=== PATIENT | female | born 1980 | race Caucasian/White ===

== ENCOUNTER 2022-11-25 08:54 | Emergency (ER) | payer OTHER, SELFPAY ==
[2022-11-25 09:07] VITALS: BP 113/80; PULSE 69; RESP 18; TEMP 36.8; O2SAT 97; BMI 33.2
[2022-11-25 09:32] VITALS: BP 126/75; PULSE 71; RESP 15; TEMP 36.9; O2SAT 97
[2022-11-25 09:36] LABS: Basophils # 0.1 10^3/uL (0.0-0.1); Basophils % 0.5 %; Eosinophils # 0.4 10^3/uL (0.0-0.8); Eosinophils % 3.2 %; Hematocrit 43.5 % (37.0-47.0); Hemoglobin 14.3 g/dL (11.5-15.3); Lymphocytes # 2.6 10^3/uL (0.8-4.8); Lymphocytes % 21.4 %; Mean Corpuscular HGB Conc 32.9 g/dL (30.0-36.0); Mean Corpuscular Hemoglobin 29.8 pg (28.0-34.0); Mean Corpuscular Volume 90.6 fl (81-99); Mean Platelet Volume 12.7 fL (7.4-10.4); Monocytes # 0.6 10^3/uL (0.2-0.9); Monocytes % 5.3 %; Neutrophils # 8.35 10^3/uL (1.8-7.7); Neutrophils % 69.2 %; Nucleated Red Blood Cells % 0 %; Platelet Count 220 10^3/cmm (130-400); Red Cell Distribution Width 12.7 % (12.1-15.1); White Blood Count 12.1 10^3/uL (4.0-10.0)
[2022-11-25 09:49] LABS: Add Urine Microscopic? NO; Charge for UA Resulting for Rev
--- NOTE | 2022-11-25 09:49 | US_ITS ---
WS: [id number] Exam: US gall bladder [id number] Date/Time of Exam: 11/25/2022 9:49 AM Reason For Exam: abd pain Thick-walled contracted gallbladder contains multiple stones. No sign of pericholecystic fluid or gal lbladder wall edema. The liver is grossly normal. Common bile duct is not dilated and measures 3.7 mm at greatest diameter. No intrahepatic ductal dilatation. Normal-appearing right kidney. No free flui d in the right abdomen. US/US gall bladder [id number] IMPRESSION: 1. Contracted thick-walled gallbladder containing multiple stones. No definite sign of acute cholecystitis.
--- NOTE | 2022-11-25 09:52 | W.ED.ABDPA2 ---
HPI - Abdominal Pain General: Chief Complaint: Abdominal Pain Stated Complaint: sent by UC/stomach cramps Time Seen by Provider: 11/25/22 08:56 Source: patient Mode of arrival: ambulatory History of Present Illness: 41-year-old female who presents emergency room complaining of epigastric right upper quadrant abdominal pain has been going on for approximately a week eating seems to make it worse she has really noticed anything that makes it better she denies any hemoptysis hematochezia melena hematemesis or coffee-ground emesis. No dysuria urgency or frequency no real flank pain. No hematuria. She is not had any previous abdominal surgeries. She has not previously had pain such as this in the past. Subjectively she is reporting a mild fever overnight. She states she has only been able to drink water she has vomited quite a bit of water and bile-like material. MD elicited complaint: abdominal pain Onset (ago): week(s) Pain Consistency: intermittent Location: Epigastric Severity: moderate Quality: cramping Radiation: RUQ Exacerbating factors: eating Relieving factors: nothing Associated Symptoms: Reports GI cramping, nausea, poor appetite and vomiting; Denies anorexia, belching, bloating, change in bowel habits, change in stool character, chills, coffee ground emesis, constipation, diarrhea, dyspepsia, dysuria, excessive flatus, fever(s), heartburn, hematochezia, hematuria, hematemesis, fecal incontinence, loose stools, melena and syncope Review of Systems Const: Denies: fever(s), chills, fatigue or malaise ENMT: Denies: throat pain, ear or mastoid pain, nasal discharge or nasal congestion Card: Denies: chest pain, palpitations, irregular heart rhythm or syncope Resp: Denies: dyspnea, productive cough or non-productive cough GI: Reports: abdominal pain, nausea, vomiting and GI cramping; Denies: hematemesis, coffee ground emesis, heartburn, diarrhea, constipation, bloating, belching, excessive flatus, fecal incontinence, change in bowel habits, change in stool character, hematochezia or melena : Denies: flank pain, dysuria, urinary frequency or hematuria Skin/Breast: Denies: rash or pruritus PFSH ED PFSH: Medical History Mixed anxiety depressive disorder Physical Exam Const: COMMON NORMALS: no acute distress GENERAL APPEARANCE: cooperative and comfortable ORIENTATION/CONSCIOUSNESS: Yes awake, Yes oriented to person, Yes oriented to place and Yes oriented to time HENMT: COMMON NORMALS: normocephalic, atraumatic and hearing grossly normal bilaterally HEAD & SCALP: normocephalic and atraumatic Resp: COMMON NORMALS: normal respiratory effort, No retractions, No use of accessory muscles and clear to auscultation bilaterally AUSCULTATION: clear to auscultation bilaterally Cardio: COMMON NORMALS: regular rate, regular rhythm and No murmurs present (Cardio) RATE: regular rate RHYTHM: regular rhythm GI: COMMON NORMALS: No hepatosplenomegaly present AUSCULTATION: Yes normoactive bowel sounds PALPATION: Yes Tenderness to palpation present (GI) (Epigastric. Negative Pires sign) Details: RUQ, No Guarding due to palpation present (GI) and Yes No hepatosplenomegaly present Extremity: COMMON NORMALS: normal to inspection, capillary refill normal, no clubbing, cyanosis or edema, no calf tenderness and no pedal edema Neuro: SENSORIUM/ORIENTATION: Yes oriented to person, Yes oriented to place and Yes oriented to time Skin: COMMON NORMALS: no rashes or lesions noted GENERAL SKIN EXAM: no rashes or lesions noted Course Vital Signs: Vital signs: Vital Signs Temperature 98.5 F 11/25/22 09:32 Pulse Rate 76 11/25/22 10:21 Respiratory Rate 15 11/25/22 09:32 Blood Pressure 100/79 11/25/22 10:21 Pulse Oximetry 95 11/25/22 10:21 Oxygen Delivery Me thod Room Air 11/25/22 10:21 MDM - Abdominal Pain Medical Decision Making Biliary colic with cholelithiasis no evidence of choledocholithiasis. Mild leukocytosis but normal liver functions and T. bili discussed Dr. Wiley on-call will discharge patient home dietary restrictions started on Augmentin follow-up with Dr. Wiley in the office to plan for definitive care return if is worsening problems Medical Records I reviewed the patient's medical records. Lab Data I reviewed the patient's lab results. 11/25/22 09:25 11/25/22 09:25 Labs/Radiology: Radiology Impressions Gallbladder Ultrasound 11/25/22 09:49 IMPRESSION: 1. Contracted thick-walled gallbladder containing multiple stones. No definite sign of acute cholecystitis. Laboratory Results WBC 12.1 10^3/uL (4.0-10.0) H 11/25/22 09:25 RBC 4.80 10^6/uL (4.1-5.3) 11/25/22 09:25 Hgb 14.3 g/dL (11.5-15.3) 11/25/22 09:25 Hct 43.5 % (37.0-47.0) 11/25/22 09:25 MCV 90.6 fl (81-99) 11/25/22 09:25 MCH 29.8 pg (28.0-34.0) 11/25/22 09:25 MCHC 32.9 g/dL (30.0-36.0) 11/25/22 09:25 RDW 12.7 % (12.1-15.1) 11/25/22 09:25 Plt Count 220 10^3/cmm (130-400) 11/25/22 09:25 MPV 12.7 fL (7.4-10.4) H 11/25/22 09:25 Neut % (Auto) 69.2 % 11/25/22 09:25 Lymph % (Auto) 21.4 % 11/25/22 09:25 [place] % (Auto) 5.3 % 11/25/22 09:25 Eos % (Auto) 3.2 % 11/25/22 09:25 Baso % (Auto) 0.5 % 11/25/22 09:25 Neut # (Auto) 8.35 10^3/uL (1.8-7.7) H 11/25/22 09:25 Lymph # (Auto) 2.6 10^3/uL (0.8-4.8) 11/25/22 09:25 Johnston # (Auto) 0.6 10^3/uL (0.2-0.9) 11/25/22 09:25 Eos # (Auto) 0.4 10^3/uL (0.0-0.8) 11/25/22 09:25 Baso # (Auto) 0.1 10^3/uL (0.0-0.1) 11/25/22 09:25 Nucleated RBC % (auto) 0 % 11/25/22 09:25 Nucleated RBCs # 0.0 /100WBC 11/25/22 09:25 Sodium 138 mmol/L (136-145) 11/25/22 09:25 Potassium 4.0 mmol/L (3.5-5.1) 11/25/22 09:25 Chloride 102 mmol/L (98-107) 11/25/22 09:25 Carbon Dioxide 26 mmol/L (22-29) 11/25/22 09:25 Anion Gap 14.0 (5-19) 11/25/22 09:25 BUN 12 mg/dL (6-20) 11/25/22 09:25 Creatinine 0.8 mg/dL (0.5-0.9) 11/25/22 09:25 GFR Calculation 78.3 mL/min (90-130) L 11/25/22 09:25 Glucose 89 mg/dL (65-115) 11/25/22 09:25 Calculated Osmolality 285 mOsm/kg (285-295) 11/25/22 09:25 Calcium 9.3 mg/dL (8.5-10.5) 11/25/22 09:25 Total Bilirubin 0.3 mg/dL (0.15-1.2) 11/25/22 09:25 AST 14 U/L (0-32) 11/25/22 09:25 ALT 14 U/L (0-33) 11/25/22 09:25 Alkaline Phosphatase 89 U/L (35-105) 11/25/22 09:25 Total Protein 7.0 g/dL (6.6-8.7) 11/25/22 09:25 Albumin 4.2 g/dL (3.5-5.2) 11/25/22 09:25 Globulin 2.8 g/dL (1.3-4.6) 11/25/22 09:25 Urine Color Yellow (Yellow) 11/25/22 09:37 Urine Appearance Clear (CLEAR) 11/25/22 09:37 Urine pH 6 (5-7) 11/25/22 09:37 Ur Specific [place] 1.015 (1.005-1.030) 11/25/22 09:37 Urine Protein Neg (Negative) 11/25/22 09:37 Urine Glucose (UA) Norm (Normal) 11/25/22 09:37 Urine Ketones Negative (Negative) 11/25/22 09:37 Urine Blood Neg (Negative) 11/25/22 09:37 Urine Nitrate Negative (Negative) 11/25/22 09:37 Urine Bilirubin Neg (Negative) 11/25/22 09:37 Urine Urobilinogen Norm mg/dL (Negative) 11/25/22 09:37 Ur Leukocyte Esterase Negative (Negative) 11/25/22 09:37 Discharge Plan Discharge Patient Disposition: Home Clinical Impression: Cholelithiasis, Biliary colic Condition: Stable Prescriptions: New amoxicillin-pot clavulanate 875-125 mg tablet 1 tab PO BID Qty: 20 0RF hydrocodone-acetaminophen 5-325 mg tablet 1 tab PO Q6H PRN (Reason: pain) Qty: 15 0RF promethazine 25 mg tablet 25 mg PO Q6H PRN (Reason: nausea and vomiting) Qty: 20 0RF No Action bupropion HCl [Wellbutrin SR] 150 mg tablet sustained-release 12 hr 150 mg PO BID Qty: 60 0RF Rx Instructions: Need apt for refills. Tums 200 mg calcium (500 mg) Tablet,Chewable 200 mg PO TID PRN (Reason: Heartburn) ibuprofen 200 mg Tablet 600 mg PO Q6H PRN (Reason: Pain) albuterol sulfate 90 mcg/actuation Hfa Aerosol Inhaler 2 puff INHALATION QID PRN (Reason: Shortness Of Breath) Discharge Orders: Discharge ED (Routine); Ordered 11/25/22 Ordered By: Ilya Braxton Patient Instructions: Biliary Colic (ED), Gallstones (ED), Abdominal Pain (ED), Opioid Safety, Pain Management Activity Restrictions/Additional Instructions: You are seen today for epigastric abdominal pain. You did not have acute cholecystitis but you do have gallbladder stones with contraction there is no sign of blockage of the bile ducts. We will start you on oral antibiotics avoid fatty foods fried foods red meats citrus foods. Case management will make arrangements for you to follow-up with Dr. Wiley general surgeon. Coding Level of Care Code ED [employer]ling [employer] Engraver for Veronica James
[2022-11-25 09:56] LABS: Alanine Aminotransferase 14 U/L (0-33); Albumin Level 4.2 g/dL (3.5-5.2); Alkaline Phosphatase 89 U/L (35-105); Aspartate Amino Transferase 14 U/L (0-32); Blood Urea Nitrogen 12 mg/dL (6-20); Calcium 9.3 mg/dL (8.5-10.5); Carbon Dioxide 26 mmol/L (22-29); Chloride 102 mmol/L (98-107); Globulin 2.8 g/dL (1.3-4.6); Glomerular Filtration Rate 78.3 mL/min (90-130); Glucose 89 mg/dL (65-115); Osmolality Calculated 285 mOsm/kg (285-295); Sodium 138 mmol/L (136-145); Total Bilirubin 0.3 mg/dL (0.15-1.2)
[2022-11-25 09:58] LABS: Bilirubin Urine Neg (Negative); Blood Urine Neg (Negative); Glucose Urine UA Norm (Normal); Ketones Urine Negative (Negative); Leukocyte Esterase Urine Negative (Negative); Nitrate Urine Negative (Negative); Protein Urine Neg (Negative); Specific Gravity, Urine 1.015 (1.005-1.030); Urine Appearance Clear (CLEAR); Urine Color Yellow (Yellow); Urobilinogen Urine Norm (Negative); pH Urine 6 (5-7)
[2022-11-25] MEDS: sodium chloride 0.9% 1,000 ML 999 ML IV (10:19)
[2022-11-25 10:21] VITALS: BP 100/79; PULSE 76; O2SAT 95
--- NOTE | 2022-11-25 11:36 | DCPLANNER ---
Addendum entered by Cheyenne Umana 12/26/22 09:52: Patient attended appointment scheduled with general surgery Addendum entered by Cheyenne Umana 12/03/22 14:11: Patient has a follow up appointment scheduled for Tuesday, December 13, 2022 at 8:[address] jung at general surgery. Original Note: manager business planning had message to schedule a follow up appointment for patient with general surgery. manager business planning sent patients information to the front office staff at general surgery. Patients information will be printed and reviewed. Clinic will call patient with appointment information.
== END 2022-11-25 11:38 | disposition home or self-care (01) ==
PROVIDERS: Emergency Provider Family Medicine
DX: K80.20 Calculus of gallbladder without cholecystitis without obstruction (principal)
CPT/HCPCS: 76705; 80053; 81003; 85025; 96360; 99284; J7030

== ENCOUNTER 2023-01-22 05:46 | Day surgery (SDC) | payer OTHER, SELFPAY ==
[2023-01-21 10:55] VITALS: BMI 33.2
[2023-01-22] VITALS (17 sets, daily range): BP systolic 102–134; BP diastolic 55–91; PULSE 61–75; RESP 16–20; TEMP 36.3–36.8; O2SAT 91–98
--- NOTE | 2023-01-22 06:29 | W.PM.OPSFHP ---
Same Day Surgery H&P Indication for Procedure/HPI DATE OF PROCEDURE: January 22, 2023 CHIEF COMPLAINT/INDICATIONFOR SURGICAL PROCEDURE: Chronic cholecystitis PREOP DIAGNOSIS: Chronic cholecystitis PLANNED PROCEDURE: Operation Date: 01/22/23 07:00 Proposed Procedures p Laparoscopic Cholecystectomy 20732,K82.9(Not Applicable) - Minh Yoder MD Medications/Allergies* Home Medications Medication Instructions Recorded Confirmed Type albuterol sulfate 90 mcg/actuation 2 puff inhalation QID PRN 11/25/22 01/22/23 History aerosol inhaler Shortness Of Breath calcium carbonate 200 mg calcium 200 mg PO TID PRN Heartburn 11/25/22 01/22/23 History (500 mg) chewable tablet (Tums) ibuprofen 200 mg tablet 600 mg PO Q6H PRN Pain 11/25/22 01/22/23 History Allergies/Adverse Reactions Allergy/AdvReac Type Severity Reaction Status Date / Time No Known Allergies Allergy Unverified 12/13/22 08:12 Pertinent History/Comorbid Conditions* Medical History (Updated 12/03/22 @ 00:01 by ASHWIN Moura) Mixed anxiety depressive disorder Family History (Updated 12/13/22 @ 08:13 by KENNEY Elizabeth) Diabetes Unknown Heart disease Unknown Social History Smoking and tobacco status: current every day smoker cigarettes Alcohol intake: current Alcohol intake frequency: holidays/special occasions only Pertinent Exam Findings alert, oriented x 3, clear to auscultation bilaterally and regular rate & rhythm Recommendations Surgery/Procedure today Coding Level of Care Code Acute Code for Chg Fwd Diagnoses
[2023-01-22] MEDS: sodium chloride 0.9% 1,000 ML 30 ML IV (06:33)
[2023-01-22] MEDS: ceFAZolin 2,000 MG in sodium chloride 0.9% (plus) 50 ML 100 MG IV (07:16)
[2023-01-22] MEDS: lidocaine-epi 1% 20 mL INJ INJECTION (07:43)
[2023-01-22] MEDS: BUPivacaine 0.25% INJ 10 mL INJECTION (07:44)
--- NOTE | 2023-01-22 09:18 | PM.OP ---
Operative Report Date of procedure: January 22, 2023 Pre-op diagnosis: Chronic cholecystitis Post-op diagnosis: Same Procedure done: Laparoscopic cholecystectomy Specimens removed/disposition: Gallbladder Surgeon: Minh Yoder MD Order Expediter: ANGELA OR Staff Estimated blood loss: 10 Findings: Contracted gallbladder, feel with the stones, fatty infiltration of Calot's triangle with severe chronic inflammatory changes, preventing safe dissection of the cystic duct. Cholecystectomy was completed by transecting the gallbladder at the junction between the infundibulum and the cystic duct. Brief History: 42-year-old female who presents for evaluation of biliary colic and abdominal pain, ultrasound of the gallbladder show evidence of a contracted gallbladder after a prolonged discussion of the risk and benefits of the procedure the patient was scheduled for a laparoscopic cholecystectomy as documented in my clinic visit. Procedure: Patient was brought into the OR placed in the supine position. General anesthesia was given. The abdomen was prepped and draped in the usual sterile fashion. Timeout was conducted. The abdomen was accessed via an infraumbilical incision using an open technique, Merritt trocar was inserted and fixed to the fascia with 0 Vicryl. Initial laparoscopy showed no evidence of injury abdominal entry. Additional trocars were placed in the epigastrium right upper quadrant and right flank regions. The gallbladder was elevated from the fundus, the infundibulum was retracted to provide exposure of hepatocystic triangle. Intense fatty infiltration was noted at the level of the hepatocystic triangle the peritoneum anterior to this area was opened with electrocautery this opening was carried bilaterally to the edges of the liver and then superior along the edges of the gallbladder to provide better exposure. Careful dissection using [place] and Endo peanut was done in order to identify the critical structures. The cystic artery was identified and was noted to be on an anterior position with respect to the duct. That lower third of the gallbladder was from the liver, at the level of the cystic duct there was intense additions therefore we decided to stop our dissection at the level of the junction between the cystic duct and the infundibulum of the gallbladder to prevent any bile duct injury. At this point only 2 structures were noted entering the gallbladder and the lower third of the gallbladder was completely from the liver bed. We double clipped and transected the cystic artery and the end of the staple the gallbladder at the level of the junctions between the infundibulum and the cystic duct using a 45 mm blue load Endo KAELYN stapler. After stapling no evidence of bile leak or bleeding was noted from the gallblader infundibulum the gallbladder was then from the liver using electrocautery. The specimen was retrieved through the umbilical trocar site. The liver bed and staple line was inspected and the area was irrigated with suction irrigation. I then proceeded to close the umbilical trocar site using two #0 Vicryl [id number] sutures using a Bhargav-Dewayne. The epigastric trocar was removed under direct visualization and the pneumoperitoneum was evacuated. The wounds were closed with #4-0 Monocryl and Dermabond was applied. At the end of the procedure all counts were correct the patient tolerated well the procedure and was transferred to the PACU in stable condition after being extubated.
--- NOTE | 2023-01-22 09:50 | ANES.PREANE2 ---
Pre-Anesthetic Assessment Height/Weight: Height 1.75 m Weight 102.058 kg Temp Pulse Resp BP Pulse Ox O2 Del Method O2 Flow Rate 97.4 F L 72 16 116/86 94 Nasal Cannula 3 01/22/23 09:30 01/22/23 09:45 01/22/23 09:45 01/22/23 09:45 01/22/23 09:45 01/22/23 09:45 01/22/23 09:45 Preop Diagnosis: Chronic cholecystitis Operation Date: 01/22/23 07:00 Proposed Procedures p Laparoscopic Cholecystectomy 43815,K82.9(Not Applicable) - Minh Yoder MD Familial anesthetic complications: none Was Beta Chip taken within 24 hours: N/A Was Clonidine taken within 24 hours: N/A Last intake: Intake Last Liquid Date 01/21/23 Last Liquid Time 22:30 Last Solid Date 01/21/23 Last Solid Time 22:30 Social Tobacco and No alcohol Exam alert, oriented x 3 and regular rate & rhythm Airway Submandibular: within normal limits Cervical ROM: within normal limits Mallampati: Class II Dentition: full Pulmonary Chronic Obstructive Pulmonary Disease Metabolic Morbid Obesity Neuropsych Anxiety and Depression Anesthetic Plan ASA status: 3 Anesthesia: General Medications/Allergies Home Medications Medication Instructions Recorded Confirmed Last Taken Type bupropion HCl 150 mg tablet,12 hr 150 mg PO BID #60 tabs 07/06/19 01/22/23 01/22/23 Rx sustained-release (Wellbutrin SR) albuterol sulfate 90 mcg/actuation 2 puff inhalation QID PRN 11/25/22 01/22/23 01/22/23 History aerosol inhaler Shortness Of Breath calcium carbonate 200 mg calcium 200 mg PO TID PRN Heartburn 11/25/22 01/22/23 Unknown History (500 mg) chewable tablet (Tums) meloxicam 7.5 mg tablet 7.5 mg PO DAILY #7 tabs 01/22/23 Unknown Rx oxycodone 5 mg tablet 5 mg PO Q6H PRN pain #14 tabs 01/22/23 Unknown Rx Allergies Allergy/AdvReac Type Severity Reaction Status Date / Time No Known Allergies Allergy Unverified 12/13/22 08:12 Current Medications Generic Name Dose Route Start Last Admin Trade Name Freq PRN Reason Stop Dose Admin Sodium Chloride 1,000 mls @ 30 mls/hr 01/22/23 06:00 01/22/23 06:33 Sodium Chloride 0.9% IV 01/23/23 05:59 30 mls/hr .Q24H GUME Administration PFSH Anesthesia Medical History Mixed anxiety depressive disorder Family History (Updated 12/13/22 @ 08:[address]) Unknown Diabetes Heart disease Social History (Updated 12/13/22 @ 08:13 [address]) Smoking and tobacco status: current every day smoker cigarettes Alcohol intake: current Alcohol intake frequency: holidays/special occasions only Female Reproductive History Date of last menstrual period: 12/21/22 Data Anesthesia Cardiac Studies: No Data to Display
[2023-01-22] MEDS: fentaNYL 50 mcg/mL INJ 2mL IVP (09:53)
[2023-01-22] MEDS: oxyCODONE 5 mg IR Tab/Cap PO (11:06)
[2023-01-22 12:36] LABS: OR HCG Qualitative Urine Negative (Negative)
--- NOTE | 2023-01-22 13:51 | ANE.PACU2 ---
Inpatient post-anesthesia follow up: Airway intact: Yes Vital signs: Temperature 98.2 F Pulse Rate 61 Respiratory Rate 16 Blood Pressure 124/78 Pulse Oximetry 95 Oxygen Delivery Me thod Room Air Oxygen Flow Rate 3 Fraction of Inspir ed Oxygen Hydration adequate: Yes Nausea and vomiting: No Pain level: 3 Mental status: Baseline
== END 2023-01-22 11:34 | disposition home or self-care (01) ==
PROVIDERS: Anesthesiology; Visit Provider Surgery
PROC: 0FT44ZZ Resection of Gallbladder, Percutaneous Endoscopic Approach (ICD-10-PCS; CPT 47562; principal; 2023-01-22 07:00)
DX: K80.10 Calculus of gallbladder with chronic cholecystitis without obstruction (principal); F17.210 Nicotine dependence, cigarettes, uncomplicated
CPT/HCPCS: 47562; 81025; 84703; 88304; J0690; J1100; J1170; J1200; J2250; J2405; J2704; J2710; J3010; J3490; J7030

== ENCOUNTER 2023-07-17 09:12 | Emergency (ER) | payer OTHER, SELFPAY ==
[2023-07-17 09:54] VITALS: BP 122/74; PULSE 76; RESP 18; TEMP 36.6; O2SAT 95; BMI 34.0
[2023-07-17 10:05] LABS: Basophils # 0.1 10^3/uL (0.0-0.1); Basophils % 0.6 %; Eosinophils # 0.4 10^3/uL (0.0-0.8); Eosinophils % 3.5 %; Hematocrit 43.7 % (36-47); Lymphocytes # 2.3 10^3/uL (0.8-4.8); Lymphocytes % 22.8 %; Mean Corpuscular HGB Conc 33.4 g/dL (30-55); Mean Corpuscular Hemoglobin 30.1 pg (27-33); Mean Corpuscular Volume 90.1 fl (85-98); Mean Platelet Volume 13.2 fL (7.4-10.4); Monocytes # 0.8 10^3/uL (0.2-0.9); Monocytes % 7.5 %; Neutrophils # 6.66 10^3/uL (1.8-7.7); Neutrophils % 65.3 %; Nucleated Red Blood Cells % 0 %; Platelet Count 180 10^3/cmm (157-399); Red Blood Count 4.85 10^6/uL (3.85-5.65); Red Cell Distribution Width 12.9 % (12.1-15.1)
[2023-07-17 10:06] VITALS: BP 119/72; PULSE 93; O2SAT 96
[2023-07-17 10:31] LABS: HCG, Serum Qual Negative (Negative)
[2023-07-17 10:37] LABS: Add Urine Microscopic? NO; Charge for UA Resulting for Rev
[2023-07-17 10:41] LABS: Alanine Aminotransferase 17 U/L (0-33); Albumin Level 4.2 g/dL (3.5-5.2); Alkaline Phosphatase 87 U/L (35-105); Anion Gap 16.8 (5-19); Aspartate Amino Transferase 17 U/L (0-32); Blood Urea Nitrogen 19 mg/dL (6-20); Calcium 9.1 mg/dL (8.5-10.5); Carbon Dioxide 22 mmol/L (22-29); Chloride 106 mmol/L (98-107); Creatinine Clr Calc Pharmacy 115.3881; Globulin 2.7 g/dL (1.3-4.6); Glomerular Filtration Rate 77.9 mL/min (90-130); Glucose 103 mg/dL (65-115); Osmolality Calculated 295 mOsm/kg (285-295); Potassium 3.8 mmol/L (3.5-5.1); Sodium 141 mmol/L (136-145); Total Bilirubin 0.2 mg/dL (0.15-1.2); Total Protein 6.9 g/dL (6.6-8.7)
[2023-07-17 10:42] LABS: Specific Gravity, Urine 1.025 (1.005-1.030); Urine Appearance Clear (CLEAR); Urine Color Yellow (Yellow); pH Urine 6 (5-7)
[2023-07-17 10:43] LABS: Bilirubin Urine Neg (Negative); Blood Urine Neg (Negative); Glucose Urine UA Norm (Normal); Ketones Urine Negative (Negative); Leukocyte Esterase Urine Negative (Negative); Nitrate Urine Negative (Negative); Protein Urine Neg (Negative); Urobilinogen Urine Norm (Negative)
--- NOTE | 2023-07-17 11:05 | CT_ITS ---
WS: [id number] CT HEAD TECHNIQUE: Noncontrast CT of the head obtained from the skullbase to the vertex. CLINICAL INFORMATION: trauma COMPARISON: None. DLP: 1127.[address] scans at [facility] use at least one of these dose optimization techniques: automated e xposure control; mA and/or kV adjustment per patient size (includes targeted exams where dose is matc hed to clinical indication); or iterative reconstruction. FINDINGS: No evidence of intracranial hemorrhage or mass effect. Ventricular system and basal cisterns are mendez nt. No extra-axial fluid collections. No evidence of mass or mass effect. Normal lou-white differen tiation. Air-fluid levels in the paranasal sinuses compatible with sinusitis. Frothy secretions in the maxilla ry sinuses and ethmoid air cells. Retention cyst in the maxillary sinuses. Mastoid air cells are well aerated. Normal posterior nasopharynx. IMPRESSION: 1. No evidence of intracranial hemorrhage or mass effect. 2. Paranasal sinusitis. 3. No acute intracranial findings.
--- NOTE | 2023-07-17 11:05 | CT_ITS ---
WS: [id number] CT CERVICAL TRAUMA TECHNIQUE: Noncontrast CT of the cervical spine with coronal and sagittal reformatted images. CLINICAL INFORMATION: neck pain COMPARISON: None. DLP: 204.[address] scans at [facility] use at least one of these dose optimization techniques: automated e xposure control; mA and/or kV adjustment per patient size (includes targeted exams where dose is matc hed to clinical indication); or iterative reconstruction. FINDINGS: Straightening of the normal cervical lordosis. Moderate spondylitic changes. Slight anterolisthesis C 3 on C4. Disc osteophyte complexes with disc space narrowing worse at C4-C5 C5-C6 and C6-C7. Normal c raniocervical junction. Normal C1-C2 articulation. Dens is normal in appearance. Normal occipital con dyles. Normal C1 ring. No evidence of acute fracture or dislocation. Mild central canal stenosis C4-C5 C5-C6 and C6-C7. Mastoids air cells are well aerated. IMPRESSION: No evidence of acute fracture or dislocation.
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
== END 2023-07-17 12:31 | disposition home or self-care (01) ==
PROVIDERS: Emergency Provider Family Medicine
DX: S06.0XAA Concussion with loss of consciousness status unknown, initial encounter (principal); F17.210 Nicotine dependence, cigarettes, uncomplicated; V85.5XXA Driver of special construction vehicle injured in nontraffic accident, initial encounter; Y99.0 Civilian activity done for income or pay
CPT/HCPCS: 36415; 70450; 72125; 80053; 81003; 84703; 85025; 99284

== ENCOUNTER 2023-12-12 14:53 | Emergency (ER) | payer OTHER, SELFPAY ==
--- NOTE | 2023-12-12 14:54 | ECG_ITS ---
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 Measurements Intervals Sharon Rate: 78 P: 8 IA: 101 QRS: 7 QRSD: 102 T: 30 QT: 382 QTc: 437 Interpretive Statements SINUS RHYTHM WITH SHORT IA INTERVAL No previous ECG available for comparison Electronically Signed On 12-12-2023 17:33:26 CDT by Quincy Browne M.D. [id number] f
[2023-12-12 15:01] VITALS: BP 109/72; PULSE 76; RESP 18; TEMP 36.7; O2SAT 97
--- NOTE | 2023-12-12 15:35 | XRR_ITS ---
PROCEDURE INFORMATION: Exam: XR Chest Exam date and time: 12/12/2023 4:14 PM Age: 43 years old Clinical indication: Shortness of breath TECHNIQUE: Imaging protocol: Radiologic exam of the chest. Views: 1 view. COMPARISON: CR XR ribs RT mn 3V w CXR1V [id number] 12/09/2018 11:26 PM FINDINGS: Lungs: Unremarkable. No consolidation. Pleural spaces: Unremarkable. No pleural effusion. No pneumothorax. Heart/Mediastinum: Unremarkable. No cardiomegaly. Diaphragm: There is considerable new elevation of the left hemidiaphragm. Bones/joints: Unremarkable. XR/XR chest 1V portable [id number] IMPRESSION: There is considerable new elevation of the left hemidiaphragm. No acute cardiopulmonary abnormality.
--- NOTE | 2023-12-12 15:37 | W.ED.SOB ---
HPI - SOB/Dyspnea General: Chief Complaint: Shortness of Breath/Dyspnea Stated Complaint: Possible Mold Poisoning, SOB, Chest Pain Time Seen by Provider: 12/12/23 15:10 History of Present Illness: HPI Narrative: 43-year-old woman with a history of tobacco dependence and depression who presents to the emergency room with shortness of breath. 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 She said after she worked there she came very short of breath and has been coughing. It has been so bad she has not been able to smoke. No known fevers. Some diffuse pain in her chest with breathing. No altered mental status. No focal motor deficits. Review of Systems Narrative: Constitutional symptoms: Negative except as documented in HPI. Skin symptoms: Negative except as documented in HPI. Eye symptoms: Negative except as documented in HPI. ENMT symptoms: Negative except as documented in HPI. Respiratory symptoms: Negative except as documented in HPI. Cardiovascular symptoms: Negative except as documented in HPI. Gastrointestinal symptoms: Negative except as documented in HPI. Genitourinary symptoms: Negative except as documented in HPI. Musculoskeletal symptoms: Negative except as documented in HPI. Neurologic symptoms: Negative except as documented in HPI. Psychiatric symptoms: Negative except as documented in HPI. Endocrine symptoms: Negative except as documented in HPI. [facility] ED PFSH: Medical History Mixed anxiety depressive disorder Surgical History Hx laparoscopic cholecystectomy Family History Unknown Diabetes Heart disease Social History Smoking and tobacco/nicotine status: current every day tobacco/nicotine user cigarettes Alcohol intake: current Alcohol intake frequency: holidays/special occasions only Physical Exam Narrative: EXAM NARRATIVE: General: Alert, no acute distress. Skin: Warm, dry. Head: Normocephalic, atraumatic. Neck: Supple, trachea midline. Eye: Extraocular movements are intact. Ears, nose, mouth and throat: Oral mucosa moist. Cardiovascular: Regular rate and rhythm, Normal peripheral perfusion. Respiratory: some expiratory wheeze, mild increased wob, breath sounds are equal, Symmetrical chest wall expansion. Gastrointestinal: Soft, Nontender, Non distended, Normal bowel sounds. Musculoskeletal: Normal ROM, no deformity. Neurological: Alert and oriented to person, place, time, and situation, No focal neurological deficit observed. Psychiatric: Cooperative, appropriate mood & affect. Course Vital Signs: Vital signs: Vital Signs Temperature 98.1 F 12/12/23 15:01 Pulse Rate 76 12/12/23 16:26 Respiratory Rate 16 12/12/23 16:18 Blood Pressure 109/72 12/12/23 15:01 Pulse Oximetry 96 12/12/23 16:18 Oxygen Delivery Me thod Room Air 12/12/23 16:18 MDM - SOB/Dyspnea Medical Decision Making Differential diagnosis for patient with shortness of breath includes but is not limited to and based on the above HPI, review of systems and physical exam: Pneumonia. Bronchitis. Asthma or COPD with acute exacerbation. Acute coronary syndrome / IN. Pulmonary embolism. Anxiety. Congestive heart failure. Viral infections including influenza and Covid-19. Atrial fibrillation. Anxiety. Pleural effusion. Pneumothorax. Workup: Lab work, chest X-ray and EKG ordered to evaluate, rule in and rule out above pathologies EKG: Time 1454. Rate 78. Normal sinus rhythm, No ST-T changes, no ectopy, normal RI & QRS intervals, This was reviewed and interpreted by myself the ER physician at 1456 Chest x-ray: No acute process. No infiltrate. No pneumothorax. This was reviewed and interpreted by myself the ER physician. Lab review: I reviewed and interpreted lab work personally. Patient has a slight leukocytosis. BUN and creatinine are lab Review: Laboratory results were reviewed and interpreted by myself the emergency room physician. A bit elevated at 22 1. I reviewed the patient's medical record. Reexamination: Patient remained stable. No increased work of breathing. No altered mental status. No focal motor deficits. Assessment and plan: Upper respiratory infection/bronchitis, possibly environmentally related Tobacco dependence ?Juwan Marroquin in the emergency room - Discharged home - Discussed findings and plan with patient. Answered any questions. - All laboratory values were reviewed and interpreted personally by myself, the ER physician - All imaging was reviewed and interpreted personally by myself, the ER physician. - Evaluation and treatment of this problem were appropriate in the emergency setting Lab Data 12/12/23 15:44 12/12/23 15:44 Labs/Radiology: Laboratory Results WBC 13.11 10^3/uL (3.29-11.43) H 12/12/23 15:44 RBC 5.02 10^6/uL (3.85-5.65) 12/12/23 15:44 Hgb 15.10 g/dL (11.27-16.99) 12/12/23 15:44 Hct 44.6 % (36-47) 12/12/23 15:44 MCV 88.8 fl (85-98) 12/12/23 15:44 MCH 30.1 pg (27-33) 12/12/23 15:44 MCHC 33.9 g/dL (30-55) 12/12/23 15:44 RDW 12.7 % (12.1-15.1) 12/12/23 15:44 Plt Count 214 10^3/cmm (157-399) 12/12/23 15:44 MPV 12.5 fL (7.4-10.4) H 12/12/23 15:44 Neut % (Auto) 62.6 % 12/12/23 15:44 Lymph % (Auto) 26.8 % 12/12/23 15:44 [place] % (Auto) 6.0 % 12/12/23 15:44 Eos % (Auto) 3.7 % 12/12/23 15:44 Baso % (Auto) 0.7 % 12/12/23 15:44 Neut # (Auto) 8.20 10^3/uL (1.8-7.7) H 12/12/23 15:44 Lymph # (Auto) 3.5 10^3/uL (0.8-4.8) 12/12/23 15:44 [place] # (Auto) 0.8 10^3/uL (0.2-0.9) 12/12/23 15:44 Eos # (Auto) 0.5 10^3/uL (0.0-0.8) 12/12/23 15:44 Baso # (Auto) 0.1 10^3/uL (0.0-0.1) 12/12/23 15:44 Nucleated RBC % (auto) 0 % 12/12/23 15:44 Nucleated RBCs # 0.0 /100WBC 12/12/23 15:44 Sodium 140 mmol/L (136-145) 12/12/23 15:44 Potassium 3.7 mmol/L (3.5-5.1) 12/12/23 15:44 Chloride 103 mmol/L (98-107) 12/12/23 15:44 Carbon Dioxide 23 mmol/L (22-29) 12/12/23 15:44 Anion Gap 17.7 (5-19) 12/12/23 15:44 BUN 22 mg/dL (6-20) H 12/12/23 15:44 Creatinine 1.0 mg/dL (0.5-0.9) H 12/12/23 15:44 GFR Calculation 60.0 mL/min (90-130) L 12/12/23 15:44 Glucose 96 mg/dL (65-115) 12/12/23 15:44 Calculated Osmolality 293 mOsm/kg (285-295) 12/12/23 15:44 Calcium 9.5 mg/dL (8.5-10.5) 12/12/23 15:44 Total Bilirubin 0.3 mg/dL (0.15-1.2) 12/12/23 15:44 AST 13 U/L (0-32) 12/12/23 15:44 ALT 13 U/L (0-33) 12/12/23 15:44 Alkaline Phosphatase 92 U/L (35-105) 12/12/23 15:44 C-Reactive Protein 10.2 mg/L (0.0-4.9) H 12/12/23 15:44 NT-Pro-B Natriuret Pep < 36 pg/mL (0-125) 12/12/23 15:44 Total Protein 7.5 g/dL (6.6-8.7) 12/12/23 15:44 Albumin 4.4 g/dL (3.5-5.2) 12/12/23 15:44 Globulin 3.1 g/dL (1.3-4.6) 12/12/23 15:44 Procalcitonin 0.04 ng/mL (0-0.5) 12/12/23 15:44 XR interpretation done by ED provider, pending radiology final review Discharge Plan Discharge Patient Disposition: Home Clinical Impression: Bronchitis, Tobacco dependence Condition: Stable Prescriptions: New Zithromax Z-Gianfranco 250 mg tablet See Rx Instructions .ROUTE .COMPLEX Qty: 6 0RF Rx Instructions: For 250 mg dose pack: take 500 mg today (day 1), then 250 mg for 4 days (days 2-5) prednisone 20 mg tablet 60 mg PO DAILY Qty: 20 0RF Rx Instructions: 3 tabs (60 mg) x 3 days. 2 tabs (40 mg) x 3 days. 1 tab (20 mg) x 3 days. 1/2 tab (10 mg) x 4 days albuterol sulfate 90 mcg/actuation HFA aerosol inhaler 2 inh inhalation Q4H PRN (Reason: shortness of breath or wheezing) Qty: 6.7 0RF Rx Instructions: Please provide patient with a spacer No Action bupropion HCl [Wellbutrin SR] 150 mg tablet sustained-release 12 hr 150 mg PO BID Qty: 60 0RF calcium carbonate [Tums] 200 mg calcium (500 mg) Tablet,Chewable 200 mg PO TID PRN (Reason: Heartburn) albuterol sulfate 90 mcg/actuation Hfa Aerosol Inhaler 2 puff INHALATION QID PRN (Reason: Shortness Of Breath) hydrocodone-acetaminophen 5-325 mg tablet 1 tab PO Q6H PRN (Reason: Pain) ibuprofen 200 mg Tablet 600 - 800 mg PO Q6H PRN (Reason: Pain) Protonix 40 mg tablet,delayed release (DR/EC) 40 mg PO DAILY PRN (Reason: acid reflux) Discharge Orders: Discharge ED (Routine); Ordered 12/12/23 Ordered By: Sahara Liu Discharge Diet: Usual diet Discharge Activity: Increase activity as tolerated Patient Instructions: How to Stop Smoking (ED), Acute Bronchitis (ED) Activity Restrictions/Additional Instructions: Thank you for choosing [facility] for your healthcare needs today. Please realize this is an emergency room and that we are providing you with a medical screening exam and this may not be complete and all inclusive of all the testing and or work up that you may need to determine your ailment or severity of your illness. You have been screened and evaluated and felt safe for discharge. Health conditions do change or evolve sometimes and as such it is important that you follow up with your Primary Doctor to be re checked, 3-5 days is a general good time frame for follow up. You are always welcome to return to the ED for re assessment if your symptoms are worsening or you have new concerns Coding Level of Care Code ED Human Resources Executive Assistant for [facility] James
[2023-12-12 15:49] LABS: Basophils # 0.1 10^3/uL (0.0-0.1); Basophils % 0.7 %; Eosinophils # 0.5 10^3/uL (0.0-0.8); Eosinophils % 3.7 %; Hematocrit 44.6 % (36-47); Lymphocytes # 3.5 10^3/uL (0.8-4.8); Lymphocytes % 26.8 %; Mean Corpuscular HGB Conc 33.9 g/dL (30-55); Mean Corpuscular Hemoglobin 30.1 pg (27-33); Mean Corpuscular Volume 88.8 fl (85-98); Mean Platelet Volume 12.5 fL (7.4-10.4); Monocytes # 0.8 10^3/uL (0.2-0.9); Neutrophils % 62.6 %; Nucleated Red Blood Cells % 0 %; Platelet Count 214 10^3/cmm (157-399); Red Blood Count 5.02 10^6/uL (3.85-5.65); Red Cell Distribution Width 12.7 % (12.1-15.1); White Blood Count 13.11 10^3/uL (3.29-11.43)
[2023-12-12 16:15] LABS: NT Pro B Type Natriuretic Pept < 36 pg/mL (0-125); Procalcitonin 0.04 ng/mL (0-0.5)
[2023-12-12 16:18] VITALS: PULSE 70; RESP 16; O2SAT 96
[2023-12-12] MEDS: ipratropium-albuterol 3 mL Neb INHALATION (16:18)
[2023-12-12 16:26] VITALS: PULSE 76
[2023-12-12 16:26] LABS: Alanine Aminotransferase 13 U/L (0-33); Albumin Level 4.4 g/dL (3.5-5.2); Alkaline Phosphatase 92 U/L (35-105); Anion Gap 17.7 (5-19); Aspartate Amino Transferase 13 U/L (0-32); Blood Urea Nitrogen 22 mg/dL (6-20); C Reactive Protein 10.2 mg/L (0.0-4.9); Calcium 9.5 mg/dL (8.5-10.5); Carbon Dioxide 23 mmol/L (22-29); Chloride 103 mmol/L (98-107); Creatinine Clr Calc Pharmacy 91.3489; Globulin 3.1 g/dL (1.3-4.6); Glucose 96 mg/dL (65-115); Osmolality Calculated 293 mOsm/kg (285-295); Potassium 3.7 mmol/L (3.5-5.1); Sodium 140 mmol/L (136-145); Total Bilirubin 0.3 mg/dL (0.15-1.2); Total Protein 7.5 g/dL (6.6-8.7)
[2023-12-12] MEDS: methylPREDNISolone sod succ 125 mg/2 mL INJ IVP (16:36)
[2023-12-12 17:16] VITALS: BP 139/70; PULSE 81; O2SAT 95
== END 2023-12-12 17:17 | disposition home or self-care (01) ==
PROVIDERS: Emergency Provider Emergency Medicine
DX: J40 Bronchitis, not specified as acute or chronic (principal); F17.210 Nicotine dependence, cigarettes, uncomplicated
CPT/HCPCS: 71045; 80053; 83880; 84145; 85025; 86140; 93005; 94640; 96374; 99285; J2919

== ENCOUNTER 2024-08-26 13:31 | Emergency (ER) | payer OTHER, SELFPAY ==
[2024-08-26 13:47] VITALS: BP 133/84; PULSE 80; RESP 16; TEMP 36.6; O2SAT 97; BMI 32.5
--- NOTE | 2024-08-26 14:14 | ED_ITS ---
HPI - Trauma General: Chief Complaint: Extremity Injury, Upper Stated Complaint: Got kicked by cow on right side & shoulder Time Seen by Provider: 08/26/24 14:08 Source: patient Mode of arrival: ambulatory Limitations: no limitations History of Present Illness: Patient is a 43-year-old female presents to ED today with complaint of right sided and right upper chest wall pain that she states began approximately 4 days ago after she was kicked by a cow. She reports significant bruising to the right side of her right breast. States initially she was only having discomfort to the breast and overall continued most of her daily activates/work however yesterday/today she states over time her pain has worsened and now having right upper chest wall pain and feels shortness of breath with painful inhalation. No hemoptysis. MD complaint: injury Onset (ago): day(s) Loss of Consciousness: no Location: chest Context: other (kicked by cow) Associated symptoms: Reports chest pain (R chest wall pain); Denies abdominal pain, back pain, dizziness, epistaxis, headache(s) or syncope Related Data Home Medications ?Medication ?Instructions ?Recorded ?Confirmed albuterol sulfate 90 mcg/actuation 2 puff inhalation Q ID PRN 11/25/22 07/17/23 aerosol inhaler Shortness Of Breath calcium carbonate (Tums) 200 mg PO TID PRN Heartburn 11/25/22 07/17/23 hydrocodone 5 mg-acetaminophen 325 1 tab PO Q6H PRN Pa in 07/17/23 07/17/23 mg tablet ibuprofen 200 mg tablet 600 - 800 mg PO Q6H PRN Pain 07/17/23 07/17/23 pantoprazole 40 mg tablet,delayed 40 mg PO DAILY PRN a quincy reflux 07/17/23 07/17/23 release (Protonix) Previous Rx's ?Medication ?Instructions ?Recorded bupropion HCl 150 mg tablet,12 hr 150 mg PO BID #60 ta bs 07/06/19 sustained-release (Wellbutrin SR) albuterol sulfate 90 mcg/actuation 2 inh inhalation Q4 H PRN shortness 12/12/23 aerosol inhaler of breath or wheezing #6.7 g briana azithromycin 250 mg tablet See Rx Instructions PO .COM PLEX #6 12/12/23 (Zithromax Z-Gianfranco) tabs prednisone 20 mg tablet 60 mg (3 x 20 mg) PO DAILY # 20 tabs 12/12/23 Allergies Allergy/AdvReac Type Severity Reaction Status Date / Time No Known Allergies Allergy Verified 12/12/23 15:05 Review of Systems Eyes: Denies: change in vision, blurry vision, photophobia, eye discharge, floaters or seeing flashes ENMT: Denies: throat pain, odynophagia, ear or mastoid pain, ear discharge, nasal discharge, epistaxis or sinus pain Card: Reports: chest pain (R chest wall pain); Denies: palpitations, lightheadedness, syncope or pre-syncope Resp: Reports: dyspnea and pain on inspiration; Denies: productive cough, non-productive cough, hemoptysis or chest congestion GI: Denies: abdominal pain : Denies: flank pain or hematuria Musc: Denies: neck pain, back pain, extremity pain or joint pain Neuro: Denies: headache(s), numbness in extremities, weakness in extremities, sensory changes or dizziness PFSH ED PFSH: Medical History Mixed anxiety depressive disorder Surgical History Hx laparoscopic cholecystectomy Family History Unknown Diabetes Heart disease Social History Smoking and tobacco/nicotine status: current every day tobacco/nicotine user cigarettes Alcohol intake: current Alcohol intake frequency: holidays/special occasions only Physical Exam Const: COMMON NORMALS: no acute distress, average body habitus, patient oriented x3, no limitations, healthy appearing, alert and well nourished GENERAL APPEARANCE: cooperative ORIENTATION/CONSCIOUSNESS: Yes awake, Yes oriented to person, Yes oriented to place and Yes oriented to time HENMT: COMMON NORMALS: normocephalic, atraumatic and TM's normal bilaterally HEAD & SCALP: normal to inspection, normocephalic and atraumatic; no Mccrary's sign, no hematoma and no raccoon eyes FACE & SINUS: normal facial exam TYMPANIC MEMBRANE: TM's normal bilaterally MOUTH: other (no intraoral injuries noted) Eye: COMMON NORMALS: Equal, round and reactive pupils present and EOMs intact bilaterally GENERAL EYE: appearance normal, both eyes and all related structures and normal light reflex PUPIL: Yes Equal, round and reactive pupils present DIRECT OPHTHALMOSCOPY: Yes normal light reflex Neck/C-Spine: COMMON NORMALS: full ROM GENERAL: Yes normal visual inspection CERVICAL SPINE: Yes cervical ROM normal, No pain with cervical ROM, No Cervical spine tenderness, No step off deformity and No Paracervical muscle tenderness Chest: OTHER: ecchymosis R lateral breast; no obvious rib tenderness; no crepitus noted; lung sounds normal; no pain to RUQ; she does have R upper rib pain with palpation Resp: COMMON NORMALS: normal respiratory effort and clear to auscultation bilaterally AUSCULTATION: clear to auscultation bilaterally Cardio: COMMON NORMALS: regular rate and regular rhythm RATE: regular rate RHYTHM: regular rhythm GI: COMMON NORMALS: Normal to inspection, nondistended, normoactive bowel sounds present, Soft to palpation, non-tender, No hepatosplenomegaly present and no masses INSPECTION: Yes normal to inspection and No abdominal wall ecchymosis AUSCULTATION: Yes normoactive bowel sounds PALPATION: Yes Soft to palpation and Yes No hepatosplenomegaly present Back/Pelvis: COMMON NORMALS: thoracic and lumbar spine normal to inspection, no thoracic nor lumbar tenderness and thoraco-lumbar ROM normal Extremity: COMMON NORMALS: normal to inspection and full ROM GENERAL: Yes normal exam except as noted Neuro: LAINA COMA SCALE: document GCS findings [place] coma scale eye opening: Spontaneous [place] coma scale verbal response: Orientated [place] coma scale motor response: Obey commands Laina coma scale total score: 15 COMMON NORMALS: patient oriented x3, CN's II-XII intact bilaterally, moves all extremities, no focal motor deficits, no sensory deficits noted and gait normal SENSORIUM/ORIENTATION: Yes alert, Yes oriented to person, Yes oriented to place and Yes oriented to time SPEECH: speech normal GAIT: Yes Normal gait present Skin: COMMON NORMALS: no rashes or lesions noted GENERAL SKIN EXAM: no rashes or lesions noted TRAUMA: no lacerations or abrasions Course Vital Signs: Vital signs: Vital Signs Temperature 97.8 F 08/26/24 13:47 Pulse Rate 80 08/26/24 13:47 Respiratory Rate 16 08/26/24 13:47 Blood Pressure 133/84 08/26/24 13:47 Pulse Oximetry 97 08/26/24 13:47 Oxygen Delivery Me thod Room Air 08/26/24 13:47 MDM - Trauma Medical Decision Making CT imaging is unremarkable. She will be allowed discharge. Return precautions discussed. Otherwise I would like her to follow-up with primary care. Medical Records I reviewed the patient's medical records. Lab Data Radiology Impressions Chest CT 08/26/24 14:28 IMPRESSION: No acute findings. ADDENDUM: 08/26/24 1557 Moderate elevation of the left hemidiaphragm. All radiology interpretation(s) finalized by discharge Discharge Plan Discharge Patient Disposition: Home Clinical Impression: Chest wall contusion Qualifiers: Encounter type: initial encounter Laterality: right Qualified Code(s): S20.211A - Contusion of right front wall of thorax, initial encounter Condition: Stable Prescriptions: No Action bupropion HCl [Wellbutrin SR] 150 mg tablet sustained-release 12 hr 150 mg PO BID Qty: 60 0RF Zithromax Z-Gianfranco 250 mg tablet See Rx Instructions .ROUTE .COMPLEX Qty: 6 0RF Rx Instructions: For 250 mg dose pack: take 500 mg today (day 1), then 250 mg for 4 days (days 2-5) prednisone 20 mg tablet 60 mg PO DAILY Qty: 20 0RF Rx Instructions: 3 tabs (60 mg) x 3 days. 2 tabs (40 mg) x 3 days. 1 tab (20 mg) x 3 days. 1/2 tab (10 mg) x 4 days albuterol sulfate 90 mcg/actuation HFA aerosol inhaler 2 inh inhalation Q4H PRN (Reason: shortness of breath or wheezing) Qty: 6.7 0RF Rx Instructions: Please provide patient with a spacer calcium carbonate [Tums] 200 mg calcium (500 mg) Tablet,Chewable 200 mg PO TID PRN (Reason: Heartburn) albuterol sulfate 90 mcg/actuation Hfa Aerosol Inhaler 2 puff INHALATION QID PRN (Reason: Shortness Of Breath) hydrocodone-acetaminophen 5-325 mg tablet 1 tab PO Q6H PRN (Reason: Pain) ibuprofen 200 mg Tablet 600 - 800 mg PO Q6H PRN (Reason: Pain) Protonix 40 mg tablet,delayed release (DR/EC) 40 mg PO DAILY PRN (Reason: acid reflux) Discharge Orders: Discharge ED (Routine); Ordered 08/26/24 Ordered By: Soraya Christy Patient Instructions: Chest Contusion (ED) Activity Restrictions/Additional Instructions: As we discussed, CT imaging did not show any injuries related to your recent trauma. You may continue treating symptoms conservatively with ice, heat, [id number]-[id number] analgesics such as Tylenol and Ibuprofen. You may return to the emergency department for worsening symptoms including severe chest pain, shortness of breath, difficulty breathing, severe abdominal pain, or any other concerns you may have. Otherwise you can follow-up with primary care. Print Language: Dominican Coding Level of Care Code ED Therapeutic Assistant for Veronica James
--- NOTE | 2024-08-26 14:28 | CTR_ITS ---
PROCEDURE INFORMATION: Exam: CT Chest With Contrast; Diagnostic Exam date and time: 08/26/2024 3:22 PM Age: 43 years old Clinical indication: Injury or trauma; Other: Kicked by cow; Blunt trauma (contusions or hematomas); Injury date: 08/22/2024; Additional info: Trauma; Kicked by cow-r chest pain, scan as trauma TECHNIQUE: Imaging protocol: Diagnostic computed tomography of the chest with contrast. Radiation optimization: All CT scans at this facility use at least one of these dose optimization techniques: automated exposure control; mA and/or kV adjustment per patient size (includes targeted exams where dose is matched to clinical indication); or iterative reconstruction. Contrast material: OMNIPAQUE 350; Contrast volume: 100 ml; Contrast route: INTRAVENOUS (IV); COMPARISON: CR XR chest 1V portable [id number] 12/12/2023 4:14 PM RADIATION DOSE METRICS: Total DLP (mGy-cm): 614.73 FINDINGS: Lungs: Unremarkable. No consolidation. No masses. Pleural spaces: Unremarkable. No pneumothorax. No pleural effusion. Heart: Unremarkable. No cardiomegaly. No pericardial effusion. Lymph nodes: Unremarkable. No enlarged lymph nodes. Vasculature: Unremarkable. No aortic aneurysm. Bones/joints: Unremarkable. No acute fracture. Soft tissues: Unremarkable. CT/CT chest w con* [id number] IMPRESSION: No acute findings.
[2024-08-26] MEDS: iohexol 350 mg/mL 500 mL Btl (per mL) IV (15:25)
== END 2024-08-26 16:24 | disposition home or self-care (01) ==
PROVIDERS: Emergency Provider Physician Assistant
DX: S20.211A Contusion of right front wall of thorax, initial encounter (principal); F17.210 Nicotine dependence, cigarettes, uncomplicated; W55.22XA Struck by cow, initial encounter
CPT/HCPCS: 71260; 99285

== ENCOUNTER 2025-04-21 14:16 | Outpatient (CLI) | payer OTHER, SELFPAY ==
--- NOTE | 2025-04-21 | MM_ITS ---
WS: [id number] BILATERAL 3D TOMOSYNTHESIS DIGITAL DIAGNOSTIC MAMMOGRAPHY WITH CAD CLINICAL INFORMATION: LEFT BREAST LUMP 8:00 HISTORY: LEFT breast lump COMPARISON: 2018 TECHNIQUE: Bilateral CC, MLO, and ML views. FINDINGS: Scattered fibroglandular densities bilaterally. No suspicious abnormalities in the area of palpable concern LEFT breast. Ultrasound is pending. RIGHT breast is unremarkable. ULTRASOUND BREAST LEFT TECHNIQUE: Ultrasound left breast focused area of concern. CLINICAL INFORMATION: LEFT BREAST LUMP 8:00 FINDINGS: Ultrasound LEFT breast area of palpable concern 8 o'clock position 5 cm from the nipple. Normal underlying parenchymal tissue. No cystic or solid lesions. No suspicious lesions to target for biopsy. Recommend return to annual screening mammography. MM/MM diag BI tomosynthesis [id number] IMPRESSION: DENSITY: There are scattered areas of fibroglandular density. BI-RADS: 2 - Benign. FOLLOW UP: 1 Year Follow-up Recommend return to annual screening mammography.
--- NOTE | 2025-04-21 14:28 | US_ITS ---
WS: [id number] BILATERAL 3D TOMOSYNTHESIS DIGITAL DIAGNOSTIC MAMMOGRAPHY WITH CAD CLINICAL INFORMATION: LEFT BREAST LUMP 8:00 HISTORY: LEFT breast lump COMPARISON: 2018 TECHNIQUE: Bilateral CC, MLO, and ML views. FINDINGS: Scattered fibroglandular densities bilaterally. No suspicious abnormalities in the area of palpable concern LEFT breast. Ultrasound is pending. RIGHT breast is unremarkable. ULTRASOUND BREAST LEFT TECHNIQUE: Ultrasound left breast focused area of concern. CLINICAL INFORMATION: LEFT BREAST LUMP 8:00 FINDINGS: Ultrasound LEFT breast area of palpable concern 8 o'clock position 5 cm from the nipple. Normal underlying parenchymal tissue. No cystic or solid lesions. No suspicious lesions to target for biopsy. Recommend return to annual screening mammography. US/US breast LT limited* [id number] IMPRESSION: DENSITY: There are scattered areas of fibroglandular density. BI-RADS: 2 - Benign. FOLLOW UP: 1 Year Follow-up Recommend return to annual screening mammography.
== END 2025-04-21 14:17 | disposition home or self-care (01) ==
LOC: RAD 14:18
PROVIDERS: Visit Provider Nurse Practitioner Family
DX: N63.24 Unspecified lump in the left breast, lower inner quadrant (principal); R92.323 Mammographic fibroglandular density, bilateral breasts
CPT/HCPCS: 76642; 77062; G0279

== ENCOUNTER 2025-05-09 14:21 | Emergency (ER) | payer OTHER, SELFPAY ==
--- OUTSIDE RECORDS SUMMARY | 2025-05-09 14:36 | XMS_ITS | Data Portability ---
Author Organization [facility], Sammy, [facility] Address [address] [facility] [address] [place] [address] Care Team Providers Care Baking Factory Worker Name Role Phone MALCOLM REINA Primary Care Provider Unavailabl e Assessment No assessment recorded. Plan of Treatment Reminders Order Date Submit Date Provider Last Modified By Organization Details Last Modified Time Details Appointments None recorded. Lab None recorded. Referral general surgeon referral 2022 023 [email or web address] 2 Not available 3 20:43:41 Procedures None recorded. Surgeries None recorded. Imaging None recorded. Medication Orders None recorded. Patient TargetsNo targets recorded. Patient InstructionsNo instructions recorded. Reason for Referral General Surgeon Referral for Gallstone Referring Physician: Yamileth Bender [facility], Encounter Date: 11/26/2022 Problems Name Problem SNOMED Code Status Onset Date Resolution Date Notes Provider Name and Address Organization Details Recorded Time Depressive disorder [id number] Active 2015 Depress ion; 016 10:08AM by Martha Ng CMT, Office Visit; Promote d; acuity set as *; ABHILASH guardado, [facility] 3 15:43:57 Closed injury of head 624999068013 Active 2023 Humberto Hui MD [address] [place], [phone], [facility] 4 10:01:54 Problem Notes None recorded. Medical Equipment None Reported. Allergies Allergen ID Allergen Name Allergen Category Reaction Reaction Severity Criticality Documentation Date Start Date Code Code System Note Provider Name and Address Organization Details Recorded Time 25834 diphenhyd ramine / pseudoeph edrine medicatio n Not available Not available Not available 2022 44027 2 RxNorm Comme nt: Recor ded 05/09 10:06 AM by Nile alvarez CMT, Offic e Visit ; Liz walker; Juanpablo gonzalez ce: *; Reaso n: Drug aller gy; ; Not Available [facility] 3 02:28:08 Medications Name Sig Start Date Stop Date Status Note LastModified by Organization Details LastModified Time bupropion HCl SR 150 mg tablet,12 hr sustained- release TAKE 1 TABLET BY MOUTH TWICE A DAY active Not Available Not Available No t Available azithromyc in 250 mg tablet TAKE 2 TABLETS BY MOUTH TODAY, THEN TAKE 1 TABLET DAILY FOR 4 DAYS active Not Available Not Available No t Available hydrocodon e 5 mg-acetami nophen 325 mg tablet TAKE 1 TABLET BY MOUTH EVERY 6 HOURS NEEDED FOR PAIN active Not Available Not Available No t Available promethazi ne 25 mg tablet TAKE 1 TABLET BY MOUTH EVERY 6 HOURS NEEDED FOR NAUSEA AND VOMITING active Not Available Not Available No t Available methylpred nisolone 4 mg tablets in a dose pack TAKE 6 TABLETS ON DAY 1 DIRECTED ON PACKAGE AND DECREASE BY 1 TAB EACH DAY FOR A TOTAL OF 6 DAYS active Not Available Not Available No t Available amoxicilli n 875 mg-potassi um clavulanat e 125 mg tablet TAKE 1 TABLET BY MOUTH TWICE A DAY active Not Available Not Available No t Available Prozac active 0; Recorded 6 10:06AM by Martha Ng CMT, Office Visit; Not Available Not Available Not Available bupropion HCl 150 mg tablet,12 hr sustained- release(sm oking deterrent) TAKE 1 TABLET BY MOUTH TWICE A DAY active Not Available Not Available No t Available Vitals Date Recorded Body height Body mass index (BMI) Body weight Oxygen saturation Heart rate Respiratory rate Body temperature Systolic And Diastolic Provider Name and Address Organization Details Last Updated DateTime 3 175.26 cm 33.6 kg/m2 743785. 87 g 96 % 67 /min 20 /min 97.3 [degF] 98/72 mm[Hg] RUPERT JONES [facility] 3 14:23:36 Social History None recorded. Functional Status None recorded. Mental Status None recorded. Family History Nothing Reported. Medical History No medical history recorded. Gynecological HistoryNo gynecological history recorded. Obstetrics History GPAL:G 0 P 0 0 0 0 Past Encounters Encounter ID Performer Location Encounter Start Date Encounter Closed Date Diagnosis/Indication Diagnosis SNOMED-CT Code Diagnosis ICD10 Code Diagnosis IMO Codes Diagnosis Note [id number] BARBARA TOSCANO [facility] ([facility] [address] [place] [phone] 11/26/2022 13:23:08 11/26/2022 16:35:59 Gallstone [id number] K80.20 Encouraged patient to continue amoxicilli n and zofran use. Discussed with patient that we can send another referral, however, there is no guarantee of getting her seen sooner. Patient verbalizes understand ing. Patient states if the timing is the same, she would rather have Dr. Gore do the surgery because she has seen him before. Discussed signs of jaundice with patient and instructed her to go to ED if these symptoms occur. Also instructed patient to go to ED if nausea and vomiting become uncontroll able. Patient verbalizes understand ing. Will send new general surgeon referral to attempt to get patient in with surgeon sooner. Patient states she is willing to travel to [facility] or [place] if needed. [id number] Humberto Hui MD [facility] ([facility]) [address] [place] [phone] 07/17/2023 09:56:31 07/20/2023 10:02:16 Closed injury of head 2530737049 06 S09.90XA Patient was sent to the emergency room for evaluation and treatment. Health Concerns Section Related Observation LastModified by Organization Detai ls LastModified Time None Recorded Concern Status LastModified by Organization Details LastModified Time None Recorded Advance Directives Directive None Recorded Payers Insurance Date Sequence Insurance Name Policy Number Policy Webb Covered Member ID Webb Member ID Guarantor Name 03/28/2023 1 [employer] - AM[employer] FROM [employer] (EPO) Corinna Licea [id number] Corinna Licea 07/17/2023 [employer]S [id number] [employer] Corinna Licea 03/28/2023 2 *SELF PAY* Am radha Licea Notes Date Note Type Note Provider Name and Address Organization Details Recorded Time 11/26/2022 text/html Abdominal PainRe ported by PatientAbdominal PainFor quality, patient reportscramping,sharp, andstabbing. For severity, patient reportsworse. For associated symptoms, patient reportsnausea. For duration, patient reportsconstant.ROS as noted in the HPI Patient is a 41 year old female who presents to the walk in clinic today for RUQ pain. Patient reports she was seen at the ED yesterday and diagnosed with gallstones. Reports she was started on Zofran and Amoxicillin which she has been taking but feels like she is getting weaker and having worse malaise today. Patient reports she is doing okay with the pain but would like another referral to a different GI specialist as she is scheduled with Dr. Wiley on 12/13/22, but states she does not feel like she can wait that long for surgery. Mihir Sheriff MD [address] [place] [address], [phone], [facility] 11/26/2022 16:04:45 OBGyn Episode No OBEpisode recorded.
--- OUTSIDE RECORDS SUMMARY | 2025-05-09 14:36 | XMS_ITS | Encounter Summary ---
Author Organization [facility] Address [address] [place] [address] Care Team Providers Care Leasing Consultant Name Role Phone Tory Kuo MD Primary Care Provider [phone] Reason for Visit * Reason Onset Date Comments Results 04/06/2025 Encounter Details Date Type Department Care Team (Late st Contact Info) Description 04/06/2025 Results Follow-Up [facility] [place] [address] [phone] Lizabeth Vital, COMPLIANCE REPRESENTATIVE [address] [phone] CERV/VAG CYTO SCREEN PAP W/HPV Social History Tobacco Use Types Packs/Day Years Used Date Smoking Tobacco: Every Day Cigarettes 1 17.8 Started: 07/17/2007 Smokeless Tobacco: Never Alcohol Use Standard Drinks/Week Comments Yes 0 (1 standard drink = 0.6 oz pur e alcohol) Comments No Sex and Gender Information Value Date Recorded Sex Assigned at Not on file Legal Sex Female 11:02 AM DRUG PURCHASER Gender Identity Not on file Sexual Orientation Not on file documented as of this encounter Miscellaneous Notes * Telephone Encounter - Martha Buchanan RN - 04/06/2025 1:46 PM DRUG PURCHASER 04/06/2025 1:46 PM Called and notified patient of results. Voiced understanding. Patient would like referral to [place]. She would like if her trizepatide was sent to [place]. Martha SALMERON PURCHASER * Telephone Encounter - Martha Buchanan RN - 04/06/2025 1:46 PM DRUG PURCHASER ----- Message from Lizabeth Vital sent at 04/06/2025 12:25 PM DRUG PURCHASER ----- PAP has came back abnormal as LSIL. It is a common finding in Pap smear results that indicates mildcervical cell changes. We do need to send to OBGYN for further evaluation though. Does she want or Cameron WHITNEY Thomas, 04/06/2025 12:25 PM ----- Message ----- From: Nico Martin Incoming [facility] Results Sent: 04/06/2025 12:11 PM DRUG PURCHASER To: WHITNEY Moralez PURCHASER documented in this encounter Plan of Treatment Not on file documented as of this encounter Visit Diagnoses Not on filedocumented in this encounter Care Teams Leasing Consultant Relationship Specialty Start Date End Date Tory Kuo MD [address] [phone] PCP - General Family Practice 07/17/23 documented as of this encounter
--- OUTSIDE RECORDS SUMMARY | 2025-05-09 14:36 | XMS_ITS | Clinical Summary ---
Author Organization [facility] [place] RichardsonCounts include 234 beds at the [facility] [address] [facility] Address [address] [place] [phone] Care Team Providers Care Network Administrator Name Role Phone Tory Kuo MD Primary Care Provider [phone] Allergies Active Allergy Reactions Criticality Noted Date Comments Diphenhydramine-Pseudo ephed Unknown 07/17/2023 diphenhydramine / pseudoephedrine Medications ibuprofen (MOTRIN) 200 mg tablet Take 200 mg by mouth every 6 hours as needed for Pain, Mild. Active buPROPion HCL (WELLBUTRIN XL) 300 mg Extended Release 24 hour tablet TAKE 1 TABLET BY MOUTH EVERY DAY IN THE MORNING 100 Tablet 3 Active Additional Information Patient not taking.Reported on 04/01/2025 albuterol sulfate HFA 90 mcg/actuation aerosol inhaler Take 2 Puffs by inhalation every 4 hours as needed for Shortness of Breath. 8.5 Gram 2 Active Additional Information Patient not taking.Reported on 04/01/2025 tirzepatide, weight loss, (Zepbound) 2.5 mg/0.5 mL Pen InjectorIndicat ions:Obesity (BMI 30.0-34.9) INJECT 0.5 ML (2.5 MG) BY SUBCUTANEOUS INJECTION EVERY 7 DAYS. 2 mL Active Additional Information Patient not taking.Reported on 04/01/2025 Active Problems Problem Noted Date Diagnosed Date Major depressive disorder in partial remission 0 07/17/2023 Obesity (BMI 30.0-34.9) 07/17/2023 Anxiety state 07/17/2023 Encounters Date Type Department Care Team Description 04/26/2025 External Device Data ST[facility] ABSTRACTION Provider, Abstract 04/21/2025 Orders Only [address] [phone] AmanuelLizabethn, TEACHER EARLY CHILDHOOD DEVELOPMENT Positive colorectal cancer screening using Cologuard test (Primary Dx) 04/12/[address] [phone] Provider, Abstract 04/06/2025 Orders Only [address] [phone] Amanuel, Crystal Zandra, TEACHER EARLY CHILDHOOD DEVELOPMENT LGSIL on Pap smear of cervix (Primary Dx) 04/06/2025 Results Follow-Up [address] [phone] Amanuel Crystal Zandra, TEACHER EARLY CHILDHOOD DEVELOPMENT CERV/VAG CYTO SCREEN PAP W/HPV 04/06/2025 Orders Only [address] [phone] AmanuelLizabethn, TEACHER EARLY CHILDHOOD DEVELOPMENT Breast lump on left side at 8 o'clock position (Primary Dx) 04/05/[address] [phone] Tory Kuo MD Provider Call 04/05/[address] [phone] Jihan Chris, TEACHER EARLY CHILDHOOD DEVELOPMENT Needs Orders Written 04/04/2025 Medication Prior Auth Encounter [facility] Prescription Management Dept [address] [place] [address] [place] [address] Ivy Ramirez, PHARMACIST 04/04/[address] [phone] Provider, Abstract 04/01/2025 11:20 AM CAN HANDLER Procedure visit [address] [phone] Amanuel Crystal Zandra, TEACHER EARLY CHILDHOOD DEVELOPMENT Well woman exam with routine gynecological exam (Primary Dx); Cervical cancer screening; Breast lump on left side at 8 o'clock position 03/29/2025 Medication Prior Auth Encounter [address] [phone] AmanuelLizabeth Zandra, TEACHER EARLY CHILDHOOD DEVELOPMENT 03/29/2025 Medication Prior Auth Encounter [address] [phone] AmanuelLizabeth Zandra, TEACHER EARLY CHILDHOOD DEVELOPMENT 03/28/2025 Results Follow-Up [address] [phone] Amanuel Crystal Zandra, TEACHER EARLY CHILDHOOD DEVELOPMENT HEMOGLOBIN A1C, T4 FREE, TSH, Additional followed-up results: 4 03/25/[address] [phone] Amanuel Crystal Zandra, TEACHER EARLY CHILDHOOD DEVELOPMENT Obesity (BMI 30.0-34.9) 03/24/2025 3:40 PM CAN HANDLER Office Visit [address] [phone] Amanuel Crystal Zandra, TEACHER EARLY CHILDHOOD DEVELOPMENT Obesity (BMI 30.0-34.9) (Primary Dx); Screening mammogram, encounter for; Encounter for colorectal cancer screening; Screening for cardiovascular condition; Screening for diabetes mellitus; Abnormal uterine bleeding 03/15/2025 External Device Data STL ABSTRACTION Provider, Abstract 03/09/2025 External Device Data STL ABSTRACTION Provider, Abstract 03/09/2025 External Device Data STL ABSTRACTION Provider, Abstract 03/02/2025 External Device Data STL ABSTRACTION Provider, Abstract 03/01/2025 External Device Data STL ABSTRACTION Provider, Abstract from Last 3 Months Immunizations Immunization Administration Dates Next Due INFLUENZA VACCINE QUADRIVALENT 6 MOS UP PF IM Family History Medical History Relation Name Comments Alcohol abuse Father Heart Disease Father Liver Disease Father Diabetes Maternal Grandfather Pancreatic Cancer Maternal Grandfather Diabetes Maternal Grandmother Other Mother Bone marrow can cer Colon Cancer Paternal Grandfather Breast Cancer Paternal Grandmother Relation Name Status Comments Father Maternal Grandfather Maternal Grandmother Mother Paternal Grandfather Paternal Grandmother Social History Tobacco Use Types Packs/Day Years Used Date Smoking Tobacco: Every Day Cigarettes 1 17.8 Started: 07/17/2007 Smokeless Tobacco: Never Tobacco Cessation:Ready to Q uit: No; Counseling Given: Yes Alcohol Use Standard Drinks/Week Comments Yes 0 (1 standard drink = 0.6 oz pur e alcohol) Comments No Sex and Gender Information Value Date Recorded Sex Assigned at Not on file Legal Sex Female 11:02 AM CAN HANDLER Gender Identity Not on file Sexual Orientation Not on file Last Filed Vital Signs Vital Sign Reading Time Taken Comments Blood Pressure 110/68 04/01/2025 11:26 AM CAN HANDLER Pulse 70 04/01/2025 11:26 AM CAN HANDLER Temperature 36.3 C (97.3 F) 04/01/2025 11:26 AM CAN HANDLER Respiratory Rate 18 04/01/2025 11:26 AM CAN HANDLER Oxygen Saturation 97% 04/01/2025 11:26 AM CAN HANDLER Inhaled Oxygen Concentration - - Weight 99.3 kg (219 lb) 04/01/2025 11:26 AM CAN HANDLER Height 175.3 cm (5' 9 ) 04/01/2025 11:26 AM CAN HANDLER Body Mass Index 32.34 04/01/2025 11:26 AM CAN HANDLER Plan of Treatment Health Maintenance Due Date Last Done Comments DTAP/TDAP/TD VACCINES (1 - Tdap) 1997 HEPATITIS B VACCINES (1 of 3 - 19+ 3-dose series) 1997 COLORECTAL SCREENING 12/08/2023 FIT/FOBT Q 1 year 12/08/2023 Flex Sig/CT Colonography Q 5 years 12/08/2023 INFLUENZA VACCINE (#1) 2024 07/17/2023 BREAST CANCER SCREENING 01/26/2025 01/27/2024 Pre-Diabetes and Diabetes Screening 03/24/202803/24, 01/14/2024 PAP SMEAR 04/01/2028 04/01/2025, 01/14/2024 Colorectal Cancer Screening 04/15/2028 FIT-DNA Q 3 years 04/15/2028 04/15/2025 CERVICAL CANCER SCREENING 04/01/2030 HPV/Cotest (21-29) 04/01/2030 04/01/2025, 01/14/2024 HPV/Cotest (30-65) 04/01/2030 04/01/2025, 01/14/2024 Preventative Visit- Commercial Completed 04/01/2025 HPV VACCINES (No Doses Required) Completed Procedures Procedure Name Priority Date/Time Associated Diagnosis Comments COLON CANCER SCREEN, STOOL DNA Routine 04/15/2025 9:30 AM CAN HANDLER Encounter for colorectal cancer screening CERV/VAG CYTO SCREEN PAP W/HPV Routine 04/01/2025 1:34 PM CAN HANDLER Cervical cancer screening CBC WITH DIFFERENTIAL Routine 03/24/2025 4:16 PM CAN HANDLER Obesity (BMI 30.0-34.9) Screening for cardiovascular condition COMPREHENSIVE METABOLIC PANEL Routine 03/24/2025 4:16 PM CAN HANDLER Obesity (BMI 30.0-34.9) Screening for cardiovascular condition LIPID PANEL Routine 03/24/2025 4:16 PM CAN HANDLER Obesity (BMI 30.0-34.9) Screening for cardiovascular condition TSH Routine 03/24/2025 4:16 PM CAN HANDLER Obesity (BMI 30.0-34.9) Screening for cardiovascular condition T4 FREE Routine 03/24/2025 4:16 PM CAN HANDLER Obesity (BMI 30.0-34.9) Screening for cardiovascular condition HEMOGLOBIN A1C Routine 03/24/2025 4:16 PM CAN HANDLER Screening for diabetes mellitus MAMMO 3D ANGELINA SCREEN BILAT W OR WO CAD Routine 01/27/2024 3:21 PM CDT Breast cancer screening by mammogram from Last 3 Months or Most Recently Relevant to Health Maintenance Results * (ABNORMAL) COLON CANCER SCREEN, STOOL DNA (04/15/2025 9:30 AM CAN HANDLER) COLOGUARD RESULT Positive( A) Negative [facility] Comment: The Cologuard (TM) test was performed on this specimen. POSITIVE TEST RESULT. A positive Cologuard result should be followed with a colonoscopy or visual examination of the colon. The normal value (reference range) for this assay is negative. TEST DESCRIPTION: Composite algorithmic analysis of stool DNA-biomarkers with hemoglobin immunoassay. Quantitative values of individual biomarkers are not reportable and are not associated with individual biomarker result reference ranges. Cologuard is intended for colorectal cancer screening of adults of either sex, 45 years or older, who are at average-risk for colorectal cancer (CRC). Cologuard has been approved for use by the U.S. FDA. The performance of Cologuard was established in a cross sectional study of average-risk adults aged 50-84. Cologuard performance in patients ages 45 to 49 years was estimated by sub-group analysis of near-age groups. Colonoscopies performed for a positive result may find as the most clinically significant lesion: colorectal cancer [4.0%], advanced adenoma (including sessile serrated polyps greater than or equal to 1cm diameter) [20%] or non- advanced adenoma [31%]; or no colorectal neoplasia [45%]. These estimates are derived from a prospective cross-sectional screening study of 10,000 individuals at average risk for colorectal cancer who were screened with both Cologuard and colonoscopy. (Eloisa Cherry et al, N Engl J Med 2014;370(14):1659-5602.) Cologuard may produce a false negative or false positive result (no colorectal cancer or precancerous polyp present at colonoscopy follow up). A negative Cologuard test result does not guarantee the absence of CRC or advanced adenoma (pre-cancer). The current Cologuard screening interval is every 3 years. ([place] Cancer Society and U.S. Multi-Society Task Force). Cologuard performance data in a 10,000 patient pivotal study using colonoscopy as the reference method can be accessed at the following location: www.Engage.ApolloMed/results. Additional description of the Cologuard test process, warnings and precautions can be found at www.imo.imogMuziwave.comrd.com. Stool STOOL SPECIMEN / Unknown 04/15/2025 9:30 AM CAN HANDLER 04/16/2025 6:39 PM CAN HANDLER us Lizabeth De Paz Amanuel TEACHER EARLY CHILDHOOD DEVELOPMENT BODY FLUIDS AND STOOLS F inal Result Personaling CLIA # [id number] [address] , [address] [place] [address] * (ABNORMAL) CERV/VAG CYTO SCREEN PAP W/HPV (04/01/2025 1:34 PM CAN HANDLER) CLINICAL INFORMATION [facility] Comment:None given LAST MENSTRUAL PERIOD [facility] Comment:NONE GIVEN PREV PAP: [facility] Comment:ASC-US PREV BX: [facility] Comment:NONE GIVEN SOURCE [facility] Comment:ENDOCERVIX ADEQUACY: [facility] Comment: Satisfactory for evaluation. Endocervical/transformation zone component present. Age and/or menstrual status not provided GENERAL CATEGORIZATION: (A) [facility] Comment:Cytology Results: Ep ithelial Cell Abnormality PAP INTERP (A) [facility] Comment: Low Grade Squamous Intraepithelial Lesion, (LSIL), a more advanced lesion may be present COMMENT (PAP TEST) [facility] Comment: This Pap test could not be evaluated with the ThinPrep(R) Imaging System. The slide was manually screened according to routine procedures. Suggest clinical correlation and follow-up as clinically appropriate [employer] SALES CONSULTANT: Qu [facility] Comment: TMK, CT(ASCP) CT Screening Location: [place] [address] [place] [address] CLIA: [id number] Slide preparation performed at: [facility], [address] [place], [address] CLIA: [id number] PATHOLOGIST [facility] Comment: Drew Etienne M.D., Board Certified in Anatomic Pathology and Cytopathology. (electronic signature) Pathologist Release Date/Time: 04/06/2025 11:30AM EXPLANATORY NOTE Que [facility] Comment: EXPLANATORY NOTE: The Pap is a screening test for cervical cancer. It is not a diagnostic test and is subject to false negative and false positive results. It is most reliable when a satisfactory sample, regularly obtained, is submitted with relevant clinical findings and history, and when the Pap result is evaluated along with historic and current clinical information. HPV E6/E7 Not Detected Not Detected [facility] Comment: Methodology: Director Of Therapy Services-Mediated Amplification This assay detects E6/E7 viral messenger RNA (mRNA) from 14 high-risk HPV types (16,18,31,33,35,39,45,51,52,56,58,59,66,68). Cervical sources are required for HPV testing. If a vaginal source from a patient who has had a total hysterectomy with removal of cervix was submitted, please contact the testing laboratory for alternative testing options. For additional information, please refer to http://education.[facility]/faq/OKF790f5 (This link if provided for information/ educational purposes only.) Test Performed at: [address] [address] Marcelino PERRY Genital SWAB OF ENDOCERVIX / Unknown 04/01/2025 1:34 PM CAN HANDLER 04/04/2025 3:59 AM CAN HANDLER Lizabeth Vital TEACHER EARLY CHILDHOOD DEVELOPMENT PATHOLOGY/CYTOLOGY ORDER YOGESH Final Result [facility] [phone] [address] * (ABNORMAL) CBC WITH DIFFERENTIAL (03/24/2025 4:16 PM CAN HANDLER) WBC 11.5(H) 3.8 - 10.8 Thousand/u L [facility] RBC 4.88 3.80 - 5.10 Million/uL [facility] HEMOGLOBIN 15.3 11.7 - 15.5 g/dL [facility] HEMATOCRIT 48.1(H) 35.0 - 45.0 % [facility] MCV 98.6 80.0 - 100.0 fL [facility] MCH 31.4 27.0 - 33.0 pg [facility] MCHC 31.8(L) 32.0 - 36.0 g/dL [facility] Comment: For adults, a slight decrease in the calculated MCHC value (in the range of 30 to 32 g/dL) is most likely not clinically significant; however, it should be interpreted with caution in correlation with other red cell parameters and the patient's clinical condition. RDW 13.2 11.0 - 15.0 % [facility] PLATELETS 223 140 - 400 Thousand/u L [facility] MPV 13.2(H) 7.5 - 12.5 fL [facility] NEUTROPHIL ABSOLUTE 7,544 1,500 - 7,800 cells/uL [facility] LYMPHOCYTE ABSOLUTE 2,749 850 - 3,900 cells/uL [facility] MONOCYTE ABSOLUTE 771 200 - 950 cells/uL [facility] EOSINOPHIL ABSOLUTE 368 15 - 500 cells/uL [facility] BASOPHILS ABSOLUTE 69 0 - 200 cells/uL [facility] NEUTROPHIL 65.6 % [facility] LYMPHOCYTES 23.9 % [facility] MONOCYTE 6.7 % [facility] EOSINOPHILS 3.2 % [facility] BASOPHILS 0.6 % [facility] Comment: Test Performed at: [facility] [address] [place] [address] Rodolfo Flores MD Blood 03/24/2025 4:16 PM CAN HANDLER 03/26/2025 7:40 AM CAN HANDLER Lizabeth Vital TEACHER EARLY CHILDHOOD DEVELOPMENT HEMATOLOGY ORDERABLES Fi nal Result [facility] [phone] [facility] [address] [place] [address] * TSH (03/24/2025 4:16 PM CAN HANDLER) TSH 1.06 mIU/L [facility] Comment: Reference Range > or = 20 Years 0.40-4.50 Ranges First trimester 0.26-2.66 Second trimester 0.55-2.73 Third trimester 0.43-2.91 Test Performed at: [facility] [address] Rodolfo Flores MD Blood 03/24/2025 4:16 PM CAN HANDLER 03/26/2025 7:40 AM CAN HANDLER Lizabeth Vital TEACHER EARLY CHILDHOOD DEVELOPMENT CHEMISTRY ORDERABLES Fin al Result Performing Organization Address [facility] Co de Phone Number [facility] [phone] [facility] [address] * T4 FREE (03/24/2025 4:16 PM CAN HANDLER) Pathologist [facility] T4 FREE 1.3 0.8 - 1.8 ng/dL [facility] Comment: Test Performed at: [facility] [address] Rodolfo Flores MD Blood 03/24/2025 4:16 PM CAN HANDLER 03/26/2025 7:40 AM CAN HANDLER Lizabeth Vital TEACHER EARLY CHILDHOOD DEVELOPMENT CHEMISTRY ORDERABLES Fin al Result Performing Organization Address [facility] de Phone Number [facility] [phone] [address] * HEMOGLOBIN A1C (03/24/2025 4:16 PM CAN HANDLER) HEMOGLOBIN A1C 5.3 <5.7 % [facility] Comment: For the purpose of screening for the presence of diabetes: <5.7% Consistent with the absence of diabetes 5.7-6.4% Consistent with increased risk for diabetes (prediabetes) > or =6.5% Consistent with diabetes This assay result is consistent with a decreased risk of diabetes. Currently, no consensus exists regarding use of hemoglobin A1c for diagnosis of diabetes in children. According to [place] Diabetes Association (ADA) guidelines, hemoglobin A1c <7.0% represents optimal control in non- diabetic patients. Different metrics may apply to specific patient populations. Standards of Medical Care in Diabetes(ADA). ESTIMATED AVERAGE GLUCOSE (MG/DL) 105 mg/dL [facility] ESTIMATED AVERAGE GLUCOSE (MMOL/L) 5.8 mmol/L [facility] Comment: Test Performed at: [facility] [id number] [place] [address] [place] [address] Rodolfo Flores MD Blood 03/24/2025 4:16 PM CAN HANDLER 03/26/2025 7:40 AM CAN HANDLER us Lizabeth Vital TEACHER EARLY CHILDHOOD DEVELOPMENT CHEMISTRY ORDERABLES Fin al Result [facility] [phone] [facility] [address] * LIPID PANEL (03/24/2025 4:16 PM CAN HANDLER) CHOLESTEROL 127 <200 mg/dL [facility] HDL 54 > OR = 50 mg/dL [facility] TRIGLYCERIDE 131 <150 mg/dL [facility] LDL CALCULATED 52 mg/dL (calc) [facility] Comment: Reference range: <100 Desirable range <100 mg/dL for primary prevention; <70 mg/dL for patients with CHD or diabetic patients with > or = 2 CHD risk factors. LDL-C is now calculated using the Umesh-Eron calculation, which is a validated novel method providing better accuracy than the Friedewald equation in the estimation of LDL-C. Umesh BOSS et al. SAUMEL. 2013;310(19): 4316-1145 (http://education.Sporthold/faq/AIL688) CHOL/HDL RATIO 2.4 <5.0 (calc) [facility] NON-HDL CHOLESTEROL 73 <130 mg/dL (calc) [facility] Comment: For patients with diabetes plus 1 major ASCVD risk factor, treating to a non-HDL-C goal of <100 mg/dL (LDL-C of <70 mg/dL) is considered a therapeutic option. Test Performed at: [facility] [address] [place] [address] [place] [address] Rodolfo Flores MD Blood 03/24/2025 4:16 PM CAN HANDLER 03/26/2025 7:40 AM CAN HANDLER us Lizabeth Vital TEACHER EARLY CHILDHOOD DEVELOPMENT CHEMISTRY ORDERABLES Fin al Result [facility] [phone] [facility] [address] [place] [address] * (ABNORMAL) COMPREHENSIVE METABOLIC PANEL (03/24/2025 4:16 PM CAN HANDLER) GLUCOSE 100(H) 65 - 99 mg/dL [facility] Comment: Fasting reference interval For someone without known diabetes, a glucose value between 100 and 125 mg/dL is consistent with prediabetes and should be confirmed with a follow-up test. BUN 12 7 - 25 mg/dL [facility] CREATININE 0.74 0.50 - 0.99 mg/dL [facility] GFR 101 > OR = 60 mL/min/1. 73m2 [facility] BUN/CREAT RATIO SEE NOTE: 6 - 22 (calc) [facility] Comment: Not Reported: BUN and Creatinine are within reference range. SODIUM 139 135 - 146 mmol/L [facility] POTASSIUM 4.2 3.5 - 5.3 mmol/L [facility] CHLORIDE 103 98 - 110 mmol/L [facility] CO2 29 20 - 32 mmol/L [facility] CALCIUM 9.9 8.6 - 10.2 mg/dL [facility] TOTAL PROTEIN 7.0 6.1 - 8.1 g/dL [facility] ALBUMIN 4.8 3.6 - 5.1 g/dL [facility] GLOBULIN 2.2 1.9 - 3.7 g/dL (calc) [facility] ALBUMIN/GLOBULIN RATIO 2.2 1.0 - 2.5 (calc) [facility] BILIRUBIN TOTAL 0.4 0.2 - 1.2 mg/dL [facility] ALKALINE PHOSPHATASE 65 31 - 125 U/L [facility] AST 14 10 - 35 U/L [facility] ALT 13 6 - 29 U/L [facility] Comment: Test Performed at: [facility] [address] [place] [address] Rodolfo Flores MD Blood 03/24/2025 4:16 PM CAN HANDLER 03/26/2025 7:40 AM CAN HANDLER Lizabeth العراقيs TEACHER EARLY CHILDHOOD DEVELOPMENT CHEMISTRY ORDERABLES Fin al Result [facility] [phone] [facility] [address] [place] [address] * MAMMO 3D ANGELINA SCREEN BILAT W OR WO CAD (01/27/2024 3:21 PM CDT) Anatomical Region Laterality Modality Breast Bilateral Mammography, Dig ital Radiography Impressions 02/05/2024 6:47 PM CDT : No mammographic evidence of malignancy. BI-RADS ASSESSMENT: 1 - Negative RECOMMENDATION: Routine annual screening mammography. Narrative 02/05/2024 6:47 PM CDT EXAM: MAMMO SCRN BILAT 3D ANGELINA W OR WO CAD INDICATION: Screening COMPARISON: No comparisons were made when reading this study. BREAST COMPOSITION: There are scattered areas of fibroglandular density. FINDINGS: RIGHT BREAST: There are no suspicious masses, calcifications, or areas of architectural distortion. LEFT BREAST: There are no suspicious masses, calcifications, or areas of architectural distortion. Lizabeth العراقيs TEACHER EARLY CHILDHOOD DEVELOPMENT MAMMO ORDERABLES Final R esult from Last 3 Months or Most Recently Relevant to Health Maintenance Insurance Care Teams Network Administrator Relationship Specialty Start Date End Date Tory Kuo MD [address] [phone] PCP - General Family Practice 07/17/23
[2025-05-09 14:37] VITALS: BP 135/90; PULSE 70; TEMP 36.9; O2SAT 97; BMI 31.0
--- NOTE | 2025-05-09 15:03 | W.ED.UPPEXIN ---
HPI - Extremity Injury (Upper) General: Chief Complaint: Extremity Injury, Upper Stated Complaint: R arm/shoulder pain, fall Time Seen by Provider: 05/09/25 15:02 Source: patient Mode of arrival: ambulatory Limitations: no limitations History of Present Illness: Patient is a 44-year-old female presents to ED today for evaluation of a right shoulder injury. She states this is a Worker's Comp. injury. She states she was at work and stepping out of a truck when she accidentally fell and landed on some posts. She states she fell onto the right shoulder and heard a pop . She has had pain to the right shoulder and right upper arm since. No other injuries or complaints at this time. complaint: injury to: right and shoulder Onset (ago): hour(s) Other Extremity Injury: Right: shoulder Other injuries: none Handedness: right Place: work Severity: moderate Relieving factors: immobilization Exacerbating factors: movement of extremity Context: fall and direct blow Associated symptoms: Reports no associated symptoms; Denies neck pain or weakness in extremities Related Data Home Medications ?Medication ?Instructions ?Recorded ?Confirmed albuterol sulfate 90 mcg/actuation 2 puff inhalation QID PRN 11/25/22 07/17/23 aerosol inhaler Shortness Of Breath calcium carbonate (Tums) 200 mg PO TID PRN Heartburn 11/25/22 07/17/23 hydrocodone 5 mg-acetaminophen 325 1 tab PO Q6H PRN Pain 07/17/23 07/17/23 mg tablet pantoprazole 40 mg tablet,delayed 40 mg PO DAILY PRN acid reflux 07/17/23 07/17/23 release (Protonix) Previous Rx's ?Medication ?Instructions ?Recorded bupropion HCl 150 mg tablet,12 hr 150 mg PO BID #60 tabs 07/06/19 sustained-release (Wellbutrin SR) albuterol sulfate 90 mcg/actuation 2 inh inhalation Q4H PRN shortness 12/12/23 aerosol inhaler of breath or wheezing #6.7 grams azithromycin 250 mg tablet See Rx Instructions PO .COMPLEX #6 12/12/23 (Zithromax Z-Gianfranco) tabs ibuprofen 800 mg tablet 800 mg PO Q8H PRN pain #20 tabs 05/09/25 methocarbamol 500 mg tablet 1,000 mg (2 x 500 mg) PO Q8H #30 05/09/25 tabs methylprednisolone 4 mg tablets in See Rx Instructions PO .COMPLEX 05/09/25 a dose pack (Medrol (Gianfranco)) #21 ea Allergies Allergy/AdvReac Type Severity Reaction Status Date / Time No Known Allergies Allergy Verified 05/09/25 14:41 Review of Systems Card: Denies: chest pain Resp: Denies: dyspnea Musc: Reports: joint pain (R shoulder) and limited range of motion (R shoulder); Denies: neck pain, back pain or joint swelling Neuro: Denies: headache(s), numbness in extremities, weakness in extremities, sensory changes or difficulty walking [facility] ED PFSH: Medical History (Updated 05/09/25 @ 16:28 by PETER Ugalde) Mixed anxiety depressive disorder Surgical History Hx laparoscopic cholecystectomy Family History Unknown Diabetes Heart disease Social History Smoking and tobacco/nicotine status: current every day tobacco/nicotine user cigarettes Alcohol intake: current Alcohol intake frequency: holidays/special occasions only Physical Exam Const: COMMON NORMALS: no acute distress, average body habitus, no limitations, healthy appearing, alert and well nourished HENMT: COMMON NORMALS: normocephalic and atraumatic HEAD & SCALP: normal to inspection, normocephalic and atraumatic Neck/C-Spine: COMMON NORMALS: full ROM CERVICAL SPINE: No Cervical spine tenderness Chest: COMMONS NORMALS: normal inspection of the chest and normal palpation of entire chest wall Resp: COMMON NORMALS: normal respiratory effort and clear to auscultation bilaterally AUSCULTATION: clear to auscultation bilaterally Back/Pelvis: COMMON NORMALS: thoracic and lumbar spine normal to inspection, no thoracic nor lumbar tenderness and thoraco-lumbar ROM normal Extremity: COMMON NORMALS: capillary refill normal GENERAL: Yes normal exam except as noted RIGHT UPPER EXTREMITY: Yes shoulder joint (significant pain to R shoulder; no obvious deformity) Right shoulder: Yes Right shoulder joint ROM exam (very limited ROM of shoulder-states she has to use L arm to pick it up ) and Yes Right shoulder joint neurovascular exam (normal) Neuro: COMMON NORMALS: moves all extremities, no focal motor deficits and no sensory deficits noted SENSORIUM/ORIENTATION: Yes alert Course Vital Signs: Vital signs: Vital Signs Temperature 98.4 F 05/09/25 14:37 Pulse Rate 70 05/09/25 14:37 Respiratory Rate 18 05/09/25 15:28 Blood Pressure 143/78 05/09/25 15:28 Pulse Oximetry 98 05/09/25 15:28 Oxygen Delivery Me thod Room Air 05/09/25 15:28 MDM - Extremity Injury (Upper) Medical Decision Making XRs of the R shoulder/humerus were obtained and unremarkable. Should be placed in a sling for comfort. Recommend follow-up with Worker's Comp. for further evaluation and treatment. Will place her on steroids, anti-inflammatories, muscle relaxers. Return precautions discussed with her. Differential Diagnosis Likely dislocation of shoulder and fracture of humerus Medical Records I reviewed the patient's medical records. Lab Data Radiology Impressions Humerus X-Ray 05/09/25 15:14 Impression: Negative right arm and humerus. Shoulder X-Ray 05/09/25 15:14 Impression: Negative right shoulder. All radiology interpretation(s) finalized by discharge Discharge Plan Discharge Patient Disposition: Home Clinical Impression: Injury of right shoulder Qualifiers: Encounter type: initial encounter Qualified Code(s): S49.91XA - Unspecified injury of right shoulder and upper arm, initial encounter Condition: Stable Prescriptions: New methocarbamol 500 mg tablet 1,000 mg PO Q8H Qty: 30 0RF ibuprofen 800 mg tablet 800 mg PO Q8H PRN (Reason: pain) Qty: 20 0RF methylprednisolone [Medrol (Gianfranco)] 4 mg tablets,dose pack See Rx Instructions .ROUTE .COMPLEX Qty: 21 0RF Rx Instructions: orally per package directions Discontinued prednisone 20 mg tablet 60 mg PO DAILY Qty: 20 0RF Rx Instructions: 3 tabs (60 mg) x 3 days. 2 tabs (40 mg) x 3 days. 1 tab (20 mg) x 3 days. 1/2 tab (10 mg) x 4 days ibuprofen 200 mg Tablet 600 - 800 mg PO Q6H PRN (Reason: Pain) No Action bupropion HCl [Wellbutrin SR] 150 mg tablet sustained-release 12 hr 150 mg PO BID Qty: 60 0RF Zithromax Z-Gianfranco 250 mg tablet See Rx Instructions .ROUTE .COMPLEX Qty: 6 0RF Rx Instructions: For 250 mg dose pack: take 500 mg today (day 1), then 250 mg for 4 days (days 2-5) albuterol sulfate 90 mcg/actuation HFA aerosol inhaler 2 inh inhalation Q4H PRN (Reason: shortness of breath or wheezing) Qty: 6.7 0RF Rx Instructions: Please provide patient with a spacer calcium carbonate [Tums] 200 mg calcium (500 mg) Tablet,Chewable 200 mg PO TID PRN (Reason: Heartburn) albuterol sulfate 90 mcg/actuation Hfa Aerosol Inhaler 2 puff INHALATION QID PRN (Reason: Shortness Of Breath) hydrocodone-acetaminophen 5-325 mg tablet 1 tab PO Q6H PRN (Reason: Pain) Protonix 40 mg tablet,delayed release (DR/EC) 40 mg PO DAILY PRN (Reason: acid reflux) Discharge Orders: Discharge ED (Routine); Ordered 05/09/25 Ordered By: Soraya Christy Patient Instructions: Patient Portal & Veronica Instructions Activity Restrictions/Additional Instructions: As we discussed, you need to follow-up with Worker's Comp. for re-evaluation and continued treatment. This may include continued conservative therapy, physical therapy, MRI, specialist referral, etc. Print Language: Khmer Coding Level of Care Code ED Chassis Engineer for Veronica James
--- NOTE | 2025-05-09 15:14 | XR_ITS ---
WS: [id number] Right arm and humerus, 2 views, 05/09/2025 Clinical Data: fall/trauma Comparison: None. Findings: No fractures or dislocations are seen. The shaft of the humerus is intact. XR/[place] [id number] Impression: Negative right arm and humerus.
--- NOTE | 2025-05-09 15:14 | XR_ITS ---
WS: [id number] Right shoulder, 3 views, 05/09/2025 Clinical Data: fall/trauma Comparison: None. Findings: No fractures or dislocations are seen. The AC joint is normal. The adjacent right clavicle, right scapula and ribs are normal. The soft tissues are unremarkable. XR/XR shoulder RT min 2V* [id number] Impression: Negative right shoulder.
[2025-05-09 15:28] VITALS: BP 143/78; RESP 18; O2SAT 98
== END 2025-05-09 16:36 | disposition home or self-care (01) ==
PROVIDERS: Emergency Provider Physician Assistant
DX: S49.91XA Unspecified injury of right shoulder and upper arm, initial encounter (principal); F17.210 Nicotine dependence, cigarettes, uncomplicated; W17.89XA Other fall from one level to another, initial encounter; Y99.0 Civilian activity done for income or pay
CPT/HCPCS: 73030; 73060; 96372; 99284; J1885